=== PATIENT | male | born 1990 | race Hispanic/Latino ===

== ENCOUNTER 2016-11-04 02:53 | Inpatient (IN) ==
--- NOTE | 2016-11-04 02:56 | PROVIDER DOCUMENTATION ---
HPI-Abdominal Pain/GI Problem - General Stated Complaint: ABD PAIN Time Seen by Provider: 11/04/16 02:55 Unable to obtain history due to:: urgency Allergies/Adverse Reactions: Patient Allergies Allergy/AdvReac Type Severity Reaction Status Date / Time No Known Allergies Allergy Verified 11/04/16 03:06 Home Medications: Home Medication List Medication Instructions Recorded Confirmed Last Taken Type NK [No Home Medications] 11/04/16 11/04/16 Unknown History - History of Present Illness-ABD Abdominal Pain Onset Location: reports: generalized abdomen Quality of Pain: reports: aching Onset/Duration: reports: 1/2 hour ago Activities at Onset: reports: light activity, recent emotional stress Exposure to sick contacts?: Yes Modifying Factors: improves with: coughing Associated Symptoms: reports: arm pain Last BM: this afternoon Rectal Bleeding: reports: bright red blood on paper Emesis Description: reports: none Bruising or Bleeding Gums?: Yes Similar Symptoms Previously?: Yes Recently seen or treated by another doctor?: Yes Review of Systems - Adult - REVIEW OF SYSTEMS - ADULT ROS:: unobtainable per condition Constitutional: reports: no symptoms reported Eyes: reports: no symptoms reported Ears, Nose, Mouth & Throat: reports: no symptoms reported Cardiovascular: reports: no symptoms reported Respiratory: reports: no symptoms reported Gastrointestinal: reports: no symptoms reported Genitourinary: reports: no symptoms reported Musculoskeletal: reports: no symptoms reported Integumentary: reports: no symptoms reported Neurological: reports: no symptoms reported Psychiatric: reports: no symptoms reported Endocrine: reports: no symptoms reported Hematologic/Lymphatic: reports: no symptoms reported Allergic/Immunologic: reports: no symptoms reported All Other Systems: Reviewed and Negative Past History - Adult - PAST MEDICAL HISTORY-ADULT Review of Records: reports: Old Records Reviewed, Nursing Assessment Review, Medications Reviewed, Social history reviewed & non-contributory. Major Childhood Illnesses: reports: denies history Cardiovascular: reports: denies history Respiratory: reports: denies history Gastrointestinal: reports: denies history, pancreatitis Obstetrical/Gynecological: reports: denies history Genitourinary: reports: denies history Musculoskeletal: reports: denies history Neurological: reports: denies history Endocrine/Immune: reports: denies history Other Conditions: reports: denies history - PRIOR SURGERIES/PROCEDURES Surgical/Procedure History: reports: reviewed, not pertinent - PRIOR HOSPITALIZATIONS Prior Hospitalizations: reports: for other non-related - IMMUNIZATION STATUS Childhood Immunizations: See Nurse Assessment Flu Vaccine: See Nurse Assessment - FAMILY HISTORY Family History: reviewed, not pertinent Physical Exam-General - PHYSICAL EXAM-ADULT Initial Vital Signs Reviewed: Yes - CONSTITUTIONAL General Appearance: appears well, alert, no apparent distress Progress - PLAN OF CARE/RESULTS Result Diagrams: 11/04/16 03:08 11/04/16 03:08 Departure - Departure Time of Disposition Decision: 05:00 DIAGNOSIS: Pancreatitis, acute Disposition: ADMITTED INPATIENT 09 Certified Medical Emergency: Emergent Condition: Stable - Critical Care Note This patient required my direct & personal management of CC.: No
[2016-11-04] MEDS ORDERED: ZOFRAN IV ONE (03:18)
[2016-11-04 03:19] LABS: MANUAL DIFF NEEDED? NO
[2016-11-04 03:29] LABS: BASO% 0.9 % (0.0-0.8); EOS# 0.02 X1000 (0.0-0.7); EOS% 0.2 % (0.0-10.0); HEMOGLOBIN 14.8 g/dL (14.0-18.0); IMM GRAN# 0.16 X1000 (0.0-0.04); IMM GRAN% 1.6 % (0.0-0.5); LYMPH# 2.81 X1000 (1.2-3.4); LYMPH% 28.1 % (20.5-51.1); MCH 29.4 PG (27-31); MCHC 34.4 g/dL (33-37); MCV 85.3 FL (81-99); MONO# 1.21 X1000 (0.11-0.59); MONO% 12.1 % (1.7-9.3); MPV 10.9 FL (7.4-10.4); NEUT% 57.1 % (42.2-75.2); PLT 362 X1000 (130-400); RBC 5.04 XMIL (4.7-6.1)
[2016-11-04 03:52] LABS: AGAP 17; ALBUMIN 4.4 g/dL (3.5-5.0); ALKALINE PHOSPHATASE 105 U/L (32-122); AMYLASE 1221 U/L (20-200); BUN 12 mg/dL (8-22); CALCIUM 8.6 mg/dL (8.8-10.2); CHLORIDE 99 mmol/L (98-107); COSMO 275; FREE T4 1.27 ng/dL (0.93-1.70); GOT 25 U/L (10-34); GPT 38 U/L (10-44); LIPASE > 3000 U/L (13-60); POTASSIUM 3.8 mmol/L (3.5-5.1); SODIUM 137 mmol/L (136-145); TCO2 21 mmol/L (25-35); TOTAL PROTEIN 7.8 g/dL (6.3-8.3)
[2016-11-04] MEDS ORDERED: SODIUM CHLORIDE 0.9% INJ ONE ×2 (03:56→03:57)
[2016-11-04] MEDS ORDERED: PHENERGAN IV ONE ×2 (03:56→03:57)
[2016-11-04 04:09] LABS: UR AMPHETAMINES QUAL NONE DETECTED (NONE DETECT); UR BARBITUATES QUAL NONE DETECTED (NONE DETECT); UR BENZODIAZEPIN QUAL NONE DETECTED (NONE DETECT); UR CANNABINOIDS QUAL NONE DETECTED (NONE DETECT); UR COCAINE QUAL PRESUMPTIVE POSITIVE (NONE DETECT); UR MDMA QUAL NONE DETECTED (NONE DETECT); UR METHADONE QUAL NONE DETECTED (NONE DETECT); UR METHAMPHETAMINE QUAL NONE DETECTED (NONE DETECT); UR OPIATES QUAL NONE DETECTED (NONE DETECT); UR OXYCODONE QUAL NONE DETECTED (NONE DETECT); UR PCP QUAL NONE DETECTED (NONE DETECT); UR TCA QUAL NONE DETECTED (NONE DETECT)
[2016-11-04 04:10] LABS: BILIRUBIN URINE NEGATIVE (NEGATIVE); BLOOD URINE NEGATIVE (NEGATIVE); CLARITY CLEAR (CLEAR); COLOR STRAW; GLUCOSE URINE NEGATIVE (NEGATIVE); LEUKOCYTES URINE NEGATIVE (NEGATIVE); NITRITE URINE NEGATIVE (NEGATIVE); PH URINE 6.5; PROTEIN URINE NEGATIVE (NEGATIVE); SP GRAVITY URINE 1.005; UROBILINOGEN URINE NORMAL
[2016-11-04] MEDS ORDERED: DEMEROL IV ONE ×3 (04:16→06:30)
[2016-11-04 04:17] LABS: URINE EPITHELIAL CELLS <10 /HPF (<10); URINE WBC NS /HPF (<10)
[2016-11-04 04:18] LABS: URINE CULTURE PL NEEDED? YES; URINE SOURCE CLEAN CATCH
[2016-11-04] MEDS ORDERED: DEMEROL ONE (04:18)
[2016-11-04] MEDS ORDERED: NS 1,000 ML IV ONE ×2 (06:23→09:13)
[2016-11-04] MEDS ORDERED: COMPAZINE IV PRN (06:27)
--- NOTE | 2016-11-04 07:53 | Diag Imaging Result Doc PS360 ---
CT ABD/PELVIS W/ IV CONT ONLY - 11/04/2016 INDICATION: pain TECHNIQUE: A CT dose reduction protocol was used. COMPARISON: 07/03/2015 FINDINGS: There is a new nodular infiltrate in the posterior right lower lobe. There is significant adenopathy in the subcarinal region. There is mild inflammatory edema about the pancreatic tail suggesting recurrent pancreatitis. No abnormal fluid collections. Stable moderate dilation of the downstream main pancreatic duct. Stable cyst at the lower pole the left kidney. Stable mild fatty change of the liver. No bowel obstruction or inflammation. Urinary bladder, prostate, and rectum are normal. Bony structures are intact. IMPRESSION: 1. New nodular infiltrate in the posterior right lower lobe. Significant mediastinal adenopathy. Given the patient's young age, this is unlikely to represent malignancy. This may represent a granulomatous inflammation, possibly tuberculosis. Correlate clinically. A follow-up chest CT may be beneficial. 2. Recurrent pancreatitis of the pancreatic tail. Stable dilation of the downstream main pancreatic duct. Electronically signed by Eduardo Benitez 11/04/2016 7:50 AM
[2016-11-04] MEDS ORDERED: LIBRIUM PO SCH (09:15)
[2016-11-04] MEDS ORDERED: PHENERGAN IV PRN (09:50)
[2016-11-04] MEDS ORDERED: SODIUM CHLORIDE 0.9% INJ PRN (09:50)
[2016-11-04] MEDS: DILAUDID IV PRN ×4 (10:10→21:26)
[2016-11-04] MEDS: SODIUM CHLORIDE 0.9% INJ SCH (10:13)
[2016-11-04] MEDS: PROTONIX IV SCH ×2 (10:13→21:20)
[2016-11-04] MEDS: LIBRIUM PO SCH ×2 (10:13→18:05)
[2016-11-04] MEDS ORDERED: TUBERSOL ID ONE (10:25)
[2016-11-04] MEDS: M.V.I.-12 10 ML, FOLIC ACID 1 MG, MAGNESIUM SULFATE 1 GM, THIAMINE 100 MG in NS 1,000 ML IV SCH (10:57)
--- NOTE | 2016-11-04 11:10 | HISTORY AND PHYSICAL ---
CHIEF COMPLAINT: Abdominal pain. HISTORY OF PRESENT ILLNESS: Mr. Valdes is a 26-year-old male with a history of chronic alcohol abuse and recurrent pancreatitis. He presented to the emergency room complaining of abdominal pain, stating that he knows he has pancreatitis. He was found to have an amylase of 1,221 and a lipase greater than 3,000; it looks like the highest he has ever had. He was also found have a blood alcohol of 132 and cocaine positive urine drug screen. At the time of exam the patient is rolling in the bed, hurting, and does not want to answer questions. In review of his chart, he does have a history of pancreatitis, being hospitalized at this facility 4 times in the last year for this. In the emergency room he was given IV hydration as well as pain and nausea control and admitted for further evaluation and treatment. In July of 2015 he underwent an MRCP which showed a distended pancreatic duct but no distinct mass. His CT today shows a new nodular infiltrate in the posterior right lobe with significant mediastinal adenopathy. That was not present on his CT in June of 2015. PAST MEDICAL HISTORY: Recurrent pancreatitis, alcohol abuse, tobacco abuse, cocaine abuse. PAST SURGICAL HISTORY: Appendectomy. SOCIAL HISTORY: Positive for alcohol abuse, illicit drug, use and tobacco use. ALLERGIES: No known drug allergies. HOME MEDICATIONS: None. REVIEW OF SYSTEMS: Unable to obtain due to patient's status. PHYSICAL EXAMINATION: GENERAL: This is a 26-year-old male who is lying in the bed, moaning and thrashing around complaining of pain. VITAL SIGNS: Blood pressure is 113/58 with a heart rate of 74, respirations are 18, temperature is 97.5 degrees with room air saturations 97 to 98%. CARDIOVASCULAR: Regular rate and rhythm. S1, S2 appreciated. PULMONARY: Breath sounds are clear. No increased work of breathing noted. GASTROINTESTINAL: Abdomen is soft. Tender epigastric and right upper quadrant pain, with bowel sounds noted. MUSCULOSKELETAL: Good range of motion of joints. EXTREMITIES: No clubbing, cyanosis, or edema. Calves are nontender. Pulses palpable x4. NEUROLOGIC: He is alert and oriented x3. Cranial nerves 2 through 12 grossly intact. DIAGNOSTICS: WBC is 9.99, with hemoglobin 14.8, hematocrit 43, and platelets of 362,000. Sodium is 137, potassium 3.8, BUN 12, creatinine 0.9, with a glucose of 126. Amylase is 1,221, lipase greater than 3,000. Urinalysis is essentially negative. Urine drug screen is positive for cocaine with a blood alcohol of 132. CT of the abdomen and pelvis reveals a new nodular infiltrate in the right lower lobe with significant mediastinal adenopathy. Given the patient's young age, it is unlikely to represent malignancy. This may represent a granulomatous inflammation, possibly TB. Follow up chest CT is beneficial. Recurrent pancreatitis of the pancreatic tail with stable dilatation of the downstream main pancreatic duct. ASSESSMENT AND PLAN: 1. Abdominal pain secondary to pancreatitis. 2. Acute pancreatitis. 3. Lung mass with extensive adenopathy r/o TB & primary fungal lung inf. Discussed with Dr Huang, plans to transfer to [facility] Monday for possible bronchoscopy ans/or further evaluation. 4. Alcohol abuse. 5. Cocaine abuse. 6. Tobacco abuse. He has been admitted to med/surg floor. He is receiving IV hydration which will continue. We will start Dilaudid for pain with , Compazine 4 times a day and Zofran as needed. He will remain NPO at present. We will start a low-dose Librium taper as he does drink daily. We will give a banana bag daily alternating with saline. We will trend his labs and monitor for any signs of withdrawal or DTs. Dictated by SEGUNDO Nino for Mario Castro MD cc: SEGUNDO Nino MD pt examined, will treat pancreatitis and stabilize and will need further diagnostic testing for lung mass, when more stable, based on CT findings lesion shoudl be amenable to bronchoscopy, will rule out tuberculosis, only s/s he reports is night sweats APENOT MTDD
[2016-11-04] MEDS ORDERED: NS 1,000 ML ONE (21:24)
[2016-11-05] MEDS: LIBRIUM PO SCH ×4 (00:56→18:48)
[2016-11-05] MEDS: DILAUDID IV PRN ×8 (01:11→23:22)
[2016-11-05 05:57] LABS: HEMATOCRIT 44.5 % (42.0-52.0); HEMOGLOBIN 14.6 g/dL (14.0-18.0); MCH 28.3 PG (27-31); MCHC 32.8 g/dL (33-37); MCV 86.2 FL (81-99); MPV 11.2 FL (7.4-10.4); RBC 5.16 XMIL (4.7-6.1)
[2016-11-05 06:15] LABS: AGAP 12; ALBUMIN 3.7 g/dL (3.5-5.0); ALKALINE PHOSPHATASE 94 U/L (32-122); AMYLASE 281 U/L (20-200); BUN 9 mg/dL (8-22); CALCIUM 8.3 mg/dL (8.8-10.2); CHLORIDE 98 mmol/L (98-107); COSMO 264; GOT 14 U/L (10-34); GPT 25 U/L (10-44); LIPASE 288 U/L (13-60); POTASSIUM 3.4 mmol/L (3.5-5.1); SODIUM 132 mmol/L (136-145); TCO2 23 mmol/L (25-35); TOTAL PROTEIN 7.2 g/dL (6.3-8.3)
[2016-11-05] MEDS: ZOFRAN IV PRN ×2 (08:09→20:52)
--- NOTE | 2016-11-05 10:22 | Diag Imaging Result Doc PS360 ---
EXAM: CT THORAX W/CONTRAST INDICATION: pneumonia COMPARISON: CT abdomen and pelvis dated 11/04/2016. No prior dedicated CT chest is available for comparison. FINDINGS: Since the recent previous study, the density at the right lung base has worsened significantly and there has been development of consolidation in the left lung base as well. At least a large component of this is atelectasis. The nodular density at the medial right lung base seen on the previous study has become confluent with a new infiltrate and atelectasis. There is atelectasis and/or infiltrate in the right middle lobe abutting the fissure superiorly that is essentially stable. There is new atelectasis and/or infiltrate in the lingula. There is trace pleural fluid at the left lung base. As was seen on the previous study, there is severe lymphadenopathy in the subcarinal region of the mediastinum as well as the right perihilar region. For reference, the large subcarinal [employer] measures up to 5.4 x 2.9 cm axially. Limited views of the upper abdomen reveal inflammatory changes and nonloculated fluid in the left upper quadrant. This has worsened during the interval. It is assumed to be emanating from the tail the pancreas, which is out of the [id number]. There is known acute pancreatitis. IMPRESSION: 1.Significant worsening of atelectasis and infiltrate involving the right lower lung zone as compared to the previous study. 2.Development of atelectasis and/or infiltrate at the left lower lung zone during the interval. 3.Severe mediastinal and right hilar lymphadenopathy that is stable as compared to the very recent previous study. 4.Worsening inflammatory changes in the left upper quadrant related to known acute pancreatitis. Electronically signed by Cornelius Elliott 11/05/2016 10:19 AM
[2016-11-05] MEDS ORDERED: LR 1,000 ML IV ONE (10:23)
[2016-11-05] MEDS: PROTONIX IV SCH ×2 (11:06→20:53)
[2016-11-05] MEDS: M.V.I.-12 10 ML, FOLIC ACID 1 MG, MAGNESIUM SULFATE 1 GM, THIAMINE 100 MG in NS 1,000 ML IV SCH (11:06)
[2016-11-05 11:13] LABS: HIV ANTIBODY SCREEN SEE COMMENTS
[2016-11-05] MEDS ORDERED: DUONEB (A & A) INH PRN (11:26)
--- NOTE | 2016-11-05 11:55 | Diag Imaging Result Doc PS360 ---
EXAM: US GB < RUQ (LIMITED) INDICATION: pancreatitis COMPARISON: 07/19/2016 FINDINGS: The gallbladder is grossly unremarkable with no stones, wall thickening, or pericholecystic fluid. The common bile duct is normal in diameter. Sonographic Reynolds's sign was reported to be negative. The pancreas is largely obscured by bowel gas. The liver echotexture is diffusely increased similar to the previous study indicating hepatic steatosis. The aorta, IVC, and right kidney are unremarkable. IMPRESSION: 1.Suggestion of hepatic steatosis. 2.Poor visualization of the pancreas. Essentially unremarkable, otherwise. Electronically signed by Cornelius Elliott 11/05/2016 11:53 AM
[2016-11-05] MEDS: ZOSYN 3.375 GM/NS 3.375 GM/50 ML IVPB IV SCH ×5 (12:16→23:28)
[2016-11-05] MEDS: LR 1,000 ML IV SCH ×3 (12:19→20:52)
--- NOTE | 2016-11-05 12:32 | PROGRESS NOTE ---
DATE: 11/05/2016 OBJECTIVE: Vital Signs: Blood pressure 165/86, heart rate 979, respiratory rate 20, temperature 99.7 degrees, 92% on room air. Cardiovascular: Regular rate and rhythm. Pulmonary: Bilateral breath sounds. Diminished at the bases. Gastrointestinal: Abdomen soft, nontender, nondistended. Bowel sounds are positive. Extremities: No clubbing or cyanosis. Lymphatics: No peripheral edema. LABORATORY STUDIES: White count 17, hemoglobin and hematocrit 14 and 44. Platelet of 276,000. Potassium of 3.4, amylase and lipase are down to 281 and 288. PROBLEM LIST: 1. Acute pancreatitis clinically has improved somewhat although it is hard to tell from him. He is very kind of sedated and he is not sharing much information. He does say his pain is better. 2. Developing pneumonia. I am going to start Zosyn, Lovenox. I think some of this is probably severe atelectasis because he does not want to get out of bed. I am sure he does not feel well, of course, but I think he has also not motivated to get up out of bed. So, we will institute breathing treatments and pulmonary toilet. 3. Subcarinal mass with a left lower lobe. He will need bronchoscopy for biopsy. I think bronchoscopy would be easier. I have discussed the case with Dr. Huang. We will plan to transfer him either tomorrow or Monday morning to [facility] for evaluation by Pulmonary there for bronchoscopy. I think that will have to be assayed. The TB rule out process this is in progress now. AFB and QuantiFERON ARE pending, as well as evaluation for fungal pneumonia. DISPOSITION: Pending his multiple issues. cc: Mario Castro MD
[2016-11-05] MEDS: DUONEB (A & A) INH SCH ×2 (16:09→21:53)
[2016-11-05] MEDS: TYLENOL PO PRN (23:20)
[2016-11-06] MEDS: LIBRIUM PO SCH ×3 (02:27→19:45)
[2016-11-06] MEDS: DILAUDID IV PRN ×7 (02:27→21:08)
[2016-11-06] MEDS: LR 1,000 ML IV SCH ×5 (03:08→19:49)
[2016-11-06] MEDS: DUONEB (A & A) INH SCH ×4 (04:12→21:32)
[2016-11-06] MEDS: ZOSYN 3.375 GM/NS 3.375 GM/50 ML IVPB IV SCH ×4 (05:07→23:22)
[2016-11-06 05:53] LABS: HEMATOCRIT 43.2 % (42.0-52.0); HEMOGLOBIN 14.1 g/dL (14.0-18.0); MCH 28.5 PG (27-31); MCHC 32.6 g/dL (33-37); MCV 87.3 FL (81-99); MPV 11.1 FL (7.4-10.4); RBC 4.95 XMIL (4.7-6.1)
[2016-11-06 06:16] LABS: AGAP 10; ALBUMIN 3.4 g/dL (3.5-5.0); ALKALINE PHOSPHATASE 90 U/L (32-122); BUN 7 mg/dL (8-22); CALCIUM 8.5 mg/dL (8.8-10.2); CHLORIDE 95 mmol/L (98-107); COSMO 259; GOT 15 U/L (10-34); GPT 21 U/L (10-44); POTASSIUM 3.2 mmol/L (3.5-5.1); SODIUM 130 mmol/L (136-145); TCO2 25 mmol/L (25-35)
[2016-11-06] MEDS ORDERED: MAGNESIUM SULFATE 2 GM/S.W.I. 2 GM/50 ML IVPB IV ONE (10:14)
[2016-11-06] MEDS ORDERED: VANCOMYCIN IV PER PHARMACY MISC SCH (10:15)
[2016-11-06] MEDS: PROTONIX IV SCH ×2 (10:36→21:07)
[2016-11-06] MEDS: POTASSIUM CHLORIDE 20 MEQ/SWI 20 MEQ/100 ML IVPB IV SCH ×2 (10:36→13:22)
[2016-11-06] MEDS: M.V.I.-12 10 ML, FOLIC ACID 1 MG, MAGNESIUM SULFATE 1 GM, THIAMINE 100 MG in NS 1,000 ML IV SCH (10:37)
--- NOTE | 2016-11-06 10:52 | PROGRESS NOTE ---
DATE: 11/06/2016 SUBJECTIVE: Today, Mr. Valdes refers to be doing a little better. He continues to have significant abdominal discomfort, especially after eating. No vomiting. OBJECTIVE: General: Mr. Valdes is a 26-year-old, male. He is in bed, not seemingly distressed. HEENT: Mucosa is pink and moist. Anicteric and acyanotic. Neck: Supple. Chest: Good air entry bilaterally. There are bilateral posterior coarse crepitations. Cardiovascular: Regular rate and rhythm. Abdomen: Soft, mildly tender all over but no peritoneal reaction. Bowel sounds are present. 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 There is no focal neurological deficit. Vital Signs: Blood pressure is 135/70, pulse of 102, respirations are 18, temperature is 100.3 degrees. Laboratory Data: WBC is 11.71, hemoglobin is 14.1, platelet count of 255,000. Chemistry is reviewed. Sodium is 130, potassium is 3.2, chloride is 95, bicarb is 27, BUN is 7, creatinine 0.7. LFTs are completely normal. A CT scan of the chest which was done yesterday shows worsening of atelectasis and infiltrates involving the right lower lobe and development of atelectasis and/or infiltrate of the left lower lobe during the interval. There is a severe mediastinal and right hilar lymphadenopathy. ASSESSMENT: 1. Acute on chronic recurrent alcohol-induced pancreatitis. 2. Acute hypoxemia secondary to bilateral pneumonia and atelectasis versus systemic reaction of acute pancreatitis. 3. Severe mediastinal lymphadenopathy. 4. Hyponatremia with hypokalemia. 5. Sepsis, likely due to pneumonia. PLAN: In general, I think Mr. Valdes is doing a little better. He continues to have significant pain with eating. We will continue to keep him nothing per oral, only ice chips as tolerated. We will continue with the current antibiotics. I will add vancomycin to cover for possible methicillin-resistant Staphylococcus aureus since patient has been in and out of hospital. There is a plan to transfer the patient to [facility] as per Dr. Castro's note on 11/05/2016 for a bronchoscopy with Dr. Huang. I think this will eventually happen on Monday, which is tomorrow, so we will recall pulmonary medicine tomorrow to make that transfer. For now, there has been a lot of serology that was ordered for fungal and TB still pending on the results. cc: Pineda Hickman MD
[2016-11-06] MEDS ORDERED: VANCOMYCIN 2,000 MG in NS 500 ML IV ONE (12:00)
[2016-11-06] MEDS ORDERED: DILAUDID IV PRN (13:39)
[2016-11-06] MEDS: PHENERGAN IV PRN ×2 (17:16→21:07)
[2016-11-07] MEDS: VANCOMYCIN 1,500 MG in NS 250 ML IV SCH ×2 (00:09→12:27)
[2016-11-07] MEDS: LIBRIUM PO SCH ×4 (01:01→22:18)
[2016-11-07] MEDS: DILAUDID IV PRN ×6 (02:21→22:19)
[2016-11-07] MEDS: LR 1,000 ML IV SCH ×2 (02:26→22:18)
[2016-11-07] MEDS: DUONEB (A & A) INH SCH ×4 (03:10→22:28)
[2016-11-07 07:22] LABS: MANUAL DIFF NEEDED? NO
[2016-11-07 07:40] LABS: BASO% 0.3 % (0.0-0.8); EOS# 0.05 X1000 (0.0-0.7); EOS% 0.4 % (0.0-10.0); HEMATOCRIT 40.3 % (42.0-52.0); HEMOGLOBIN 13.1 g/dL (14.0-18.0); IMM GRAN# 0.06 X1000 (0.0-0.04); IMM GRAN% 0.5 % (0.0-0.5); LYMPH# 1.23 X1000 (1.2-3.4); MCH 28.8 PG (27-31); MCHC 32.5 g/dL (33-37); MCV 88.6 FL (81-99); MONO# 1.22 X1000 (0.11-0.59); MONO% 10.9 % (1.7-9.3); MPV 11.6 FL (7.4-10.4); NEUT% 76.9 % (42.2-75.2); PLT 258 X1000 (130-400); RBC 4.55 XMIL (4.7-6.1)
[2016-11-07 07:52] LABS: AGAP 13; BUN 6 mg/dL (8-22); CALCIUM 8.2 mg/dL (8.8-10.2); CHLORIDE 100 mmol/L (98-107); COSMO 270; POTASSIUM 3.7 mmol/L (3.5-5.1); SODIUM 136 mmol/L (136-145); TCO2 23 mmol/L (25-35)
[2016-11-07] MEDS: M.V.I.-12 10 ML, FOLIC ACID 1 MG, MAGNESIUM SULFATE 1 GM, THIAMINE 100 MG in NS 1,000 ML IV SCH (08:45)
[2016-11-07] MEDS: SODIUM CHLORIDE 0.9% INJ SCH (08:46)
[2016-11-07] MEDS: PROTONIX IV SCH ×2 (08:46→22:18)
--- NOTE | 2016-11-07 08:55 | PROGRESS NOTE ---
DATE: 11/07/2016 SUBJECTIVE: The patient notes that he is feeling a little bit better. He started to eat a little bit better. He is having no nausea or vomiting. He is tolerating a liquid diet without any issues currently. PHYSICAL EXAMINATION: Vital Signs: Temperature 98 degrees, pulse 117, respiratory rate 22, BP 150/72, saturation 93% on 5 L. General: Patient is awake, alert. He is currently in no respiratory distress. He is lying in the bed. Notes that he feels better. HEENT: Normocephalic, atraumatic. Neck: Supple. CV: Regular rate. Chest: Clear. Abdomen: Soft, much less tender. Extremities: Moves all extremities. Neurologic: No focal changes. DIAGNOSTIC DATA: CBC and CMP essentially baseline. ASSESSMENT: 1. Acute on chronic recurrent alcoholic induced pancreatitis, improving. We will advance diet. 2. Acute hypoxemia with bilateral pneumonia. 3. Severe mediastinal lymphadenopathy. 4. Hyponatremia, resolved. 5. Hypokalemia, resolved. 6. Sepsis, appears improving. PLAN: Patient is planned for a bronchoscopy. We will see if Dr. Otero is available. Otherwise, will have to be done on Monday. We will advance diet as tolerated. cc: Rogelio France MD
[2016-11-07] MEDS: ZOSYN 3.375 GM/NS 3.375 GM/50 ML IVPB IV SCH ×4 (09:49→22:42)
[2016-11-07 10:44] LABS: HEPATITIS PROFILE ACUTE SEE COMMENTS
[2016-11-07 10:51] LABS: BLASTOMYCES AB BY EIA SEE COMMENTS
[2016-11-07] MEDS: TYLENOL PO PRN (22:54)
[2016-11-08] MEDS: VANCOMYCIN 1,500 MG in NS 250 ML IV SCH (00:41)
[2016-11-08] MEDS: DILAUDID IV PRN ×6 (02:25→23:01)
[2016-11-08] MEDS: LIBRIUM PO SCH ×4 (03:20→21:33)
[2016-11-08] MEDS: LR 1,000 ML IV SCH ×5 (03:21→23:54)
[2016-11-08] MEDS: DUONEB (A & A) INH SCH ×3 (03:34→22:05)
[2016-11-08] MEDS: ZOSYN 3.375 GM/NS 3.375 GM/50 ML IVPB IV SCH ×4 (06:32→23:53)
[2016-11-08 08:29] LABS: HEMOGLOBIN 13.5 g/dL (14.0-18.0); MCH 29.3 PG (27-31); MCHC 33.8 g/dL (33-37); MPV 10.7 FL (7.4-10.4); RBC 4.6 XMIL (4.7-6.1)
--- NOTE | 2016-11-08 08:34 | PROGRESS NOTE ---
DATE: 11/08/2016 SUBJECTIVE: Patient notes that he still feels bad. Did not sleep well last night. Did have a fever yesterday. Positive cough and congestion. OBJECTIVE: Vital signs: Temperature 98, T-max 101.3 degrees at 10 p.m. on 11/07, pulse 88-116, respiratory 20, BP 135/82, sat 96% on 2 L. Did have a low at 91% on 5 L after giving IV pain medicine yesterday. General: Patient is lying in bed. He has the sheets over his head. He is lying flat. He is in mild respiratory distress. HEENT: Normocephalic. Neck: Supple. CV: Regular rate. Chest: Decreased breath sounds but appears clear bilaterally. Abdomen: Soft. Tender in the epigastric region. Extremities: Moves all extremities. Neurologic: No changes. Skin: Warm and dry. No rashes. LABS: Pending this a.m.. ASSESSMENT: 1. Alcohol-induced pancreatitis, acute on chronic, continues to improve. We will advance diet. 2. Acute hypoxemia secondary to bilateral pneumonia. Certainly could be atelectasis secondary to a reaction from pancreatitis. 3. Severe mediastinal lymphadenopathy. 4. Fever. 5. Leukocytosis. Continues to improve. 6. Hyponatremia, resolved. 7. Hypokalemia, appears resolved. 8. Pain control. 9. Sepsis secondary to pneumonia. PLAN: From a pancreatitis standpoint patient seems to be improving, although he does have this lymphadenopathy and continued fever. Need to attempt to transfer to [facility] for pulmonology input and possibly bronchoscopy. We attempted multiple times yesterday and was unable to contact Dr. Otero. We will continue today. cc: Rogelio France MD
[2016-11-08 09:01] LABS: INR 1.13 (0.86-1.15); PROTIME 14.8 Seconds (12.1-15.5)
[2016-11-08] MEDS: PROTONIX IV SCH ×2 (09:13→21:17)
[2016-11-08] MEDS: SODIUM CHLORIDE 0.9% INJ SCH ×2 (09:13→21:16)
[2016-11-08 09:14] LABS: AGAP 11; ALBUMIN 3.2 g/dL (3.5-5.0); ALKALINE PHOSPHATASE 82 U/L (32-122); BUN 7 mg/dL (8-22); CALCIUM 8.5 mg/dL (8.8-10.2); CHLORIDE 103 mmol/L (98-107); COSMO 275; GOT 20 U/L (10-34); GPT 25 U/L (10-44); MAGNESIUM 2.1 mg/dL (1.5-2.7); POTASSIUM 3.7 mmol/L (3.5-5.1); SODIUM 139 mmol/L (136-145); TCO2 26 mmol/L (25-35); TOTAL PROTEIN 6.6 g/dL (6.3-8.3)
[2016-11-08] MEDS: TYLENOL PO PRN (09:21)
[2016-11-08] MEDS: M.V.I.-12 10 ML, FOLIC ACID 1 MG, MAGNESIUM SULFATE 1 GM, THIAMINE 100 MG in NS 1,000 ML IV SCH (10:42)
[2016-11-08] MEDS ORDERED: DUONEB (A & A) INH PRN (11:45)
[2016-11-08] MEDS ORDERED: PHENERGAN IV PRN (11:51)
[2016-11-08] MEDS ORDERED: SODIUM CHLORIDE 0.9% INJ PRN (11:52)
[2016-11-08] MEDS ORDERED: ZOFRAN IV PRN (11:56)
[2016-11-08] MEDS ORDERED: VANCOMYCIN IV PER PHARMACY MISC SCH (12:45)
[2016-11-08] MEDS: VANCOMYCIN 1,700 MG in NS 250 ML IV SCH (13:43)
[2016-11-09] MEDS: TYLENOL PO PRN ×2 (00:11→20:10)
[2016-11-09] MEDS: VANCOMYCIN 1,700 MG in NS 250 ML IV SCH ×2 (00:12→14:16)
[2016-11-09] MEDS: LR 1,000 ML IV SCH ×4 (00:37→17:55)
[2016-11-09] MEDS: DILAUDID IV PRN ×6 (02:10→15:49)
[2016-11-09] MEDS: LIBRIUM PO SCH ×4 (02:12→20:35)
[2016-11-09] MEDS: DUONEB (A & A) INH SCH ×4 (02:40→21:40)
[2016-11-09] MEDS: ZOSYN 3.375 GM/NS 3.375 GM/50 ML IVPB IV SCH ×4 (05:14→23:00)
[2016-11-09 06:35] LABS: MANUAL DIFF NEEDED? NO
[2016-11-09 06:42] LABS: BASO% 0.3 % (0.0-0.8); EOS# 0.18 X1000 (0.0-0.7); HEMATOCRIT 39.3 % (42.0-52.0); HEMOGLOBIN 13.2 g/dL (14.0-18.0); IMM GRAN# 0.05 X1000 (0.0-0.04); IMM GRAN% 0.6 % (0.0-0.5); LYMPH# 1.47 X1000 (1.2-3.4); LYMPH% 16.3 % (20.5-51.1); MCH 29.5 PG (27-31); MCHC 33.6 g/dL (33-37); MCV 87.7 FL (81-99); MONO# 1.28 X1000 (0.11-0.59); MONO% 14.2 % (1.7-9.3); MPV 10.9 FL (7.4-10.4); NEUT% 66.6 % (42.2-75.2); PLT 296 X1000 (130-400); RBC 4.48 XMIL (4.7-6.1)
[2016-11-09 06:54] LABS: AGAP 14; ALBUMIN 2.9 g/dL (3.5-5.0); ALKALINE PHOSPHATASE 78 U/L (32-122); BUN 10 mg/dL (8-22); CHLORIDE 106 mmol/L (98-107); COSMO 286; GOT 24 U/L (10-34); GPT 29 U/L (10-44); MAGNESIUM 2.2 mg/dL (1.5-2.7); POTASSIUM 3.9 mmol/L (3.5-5.1); SODIUM 144 mmol/L (136-145); TCO2 24 mmol/L (25-35); TOTAL BILIRUBIN 0.43 mg/dL (0.20-1.00); TOTAL PROTEIN 6.5 g/dL (6.3-8.3)
--- NOTE | 2016-11-09 07:31 | Diag Imaging Result Doc PS360 ---
CHEST-PORTABLE - 11/09/2016 INDICATION: dyspnea TECHNIQUE: COMPARISON: Chest CT 11/05/2016 FINDINGS: Lung volumes are critically low. Accounting for this, there are grossly stable infiltrates in the lung bases. Curvilinear density above the right hemidiaphragm appears to be some atelectasis in the right middle lobe which was present on the prior CT. IMPRESSION: Critically low lung volumes. Stable infiltrates and atelectasis in the lung bases. Electronically signed by Eduardo Benitez 11/09/2016 7:29 AM
[2016-11-09] MEDS: M.V.I.-12 10 ML, FOLIC ACID 1 MG, MAGNESIUM SULFATE 1 GM, THIAMINE 100 MG in NS 1,000 ML IV SCH ×2 (07:51→08:39)
[2016-11-09] MEDS: PROTONIX IV SCH ×3 (07:52→20:13)
--- NOTE | 2016-11-09 08:30 | CONSULTATION ---
DATE OF CONSULTATION: 11/09/2016 REFERRING PHYSICIAN: Dr. France. CHIEF COMPLAINT: Abdominal pain. HISTORY OF PRESENT ILLNESS: This is an 26-year-old male with past medical history of alcohol abuse and pancreatitis that was sent to [facility] for pulmonology input secondary to bilateral pneumonia. The patient was initially admitted for abdominal pain and acute on chronic alcoholic-induced pancreatitis. He has had fever, chills, cough, congestion and was found to have pneumonia. REVIEW OF SYSTEMS: A 10-point review of systems was conducted and pertinent as noted in the HPI, otherwise noncontributory. PAST MEDICAL HISTORY: Alcohol abuse and pancreatitis. ALLERGIES: No known drug allergies. FAMILY HISTORY: Noncontributory. ACTIVE MEDICATIONS: Tylenol, DuoNeb, Librium, Dilaudid, vancomycin, Zofran, Protonix, Zosyn, Phenergan. PHYSICAL EXAMINATION: Vital Signs: Temperature 98.2, heart rate 91, respiratory rate 18, blood pressure 137/82, oxygen saturation 97%. General: Awake, alert, no acute distress noted. HEENT: Normocephalic and atraumatic. PERRL. Cardiovascular: S1, S2 present. Chest: Reduced entry. Extremities: No edema noted. Abdomen: Soft. Bowel sounds present in all quadrants. Neurologic: No focal deficits. LABS AND INVESTIGATIONS: WBC 9.02, RBC 4.48, hemoglobin 13.2, hematocrit 39.3, platelet count 296. Sodium 144, potassium 3.9, chloride 106, carbon dioxide 24, anion gap 14. BUN 10, creatinine 1.1, glucose 96. Chest x-ray performed on 11/09/2016 shows low lung volumes with stable infiltrates and atelectasis in the lung bases. ASSESSMENT AND PLAN: This is a 26-year-old male admitted to the hospital with alcohol-induced pancreatitis that seems to be improving. He is also found to have bilateral pneumonia with lymphadenopathy and fever. We will continue inhaled bronchodilators and intravenous steroids, Protonix for gastrointestinal prophylaxis. Further recommendations pending diagnostic studies. Thank you for the courtesy of this consultation. Dictated by SEGUNDO Tucker for Tez Otero MD cc: SEGUNDO Tucker MD
--- NOTE | 2016-11-09 12:44 | PROGRESS NOTE ---
DATE: 11/09/2016 SUBJECTIVE: Today, Mr. Valdes refers to be doing okay. He continues to have some abdominal epigastric discomfort. Mr. Valdes was transferred from [facility] over here yesterday for pulmonary evaluation. From Dr. Otero's note I realize he has also consulted surgery for mediastinoscopy. OBJECTIVE: Vital signs: Blood pressure is 137/82, pulse of 91, respirations 18, temperature 98.2 degrees. Of note patient had a temperature of 99.8 early this morning and has been running a low grade temperature since admission. General: Mr. Valdes is a 26-year-old male. He is in bed, and does not seems to be in any distress. HEENT: Mucosa is pink and moist. Anicteric. Acyanotic. Neck: Supple. Chest: Air entry is bilaterally reduced. There are some bibasilar crepitations more so on the right than the left. Cardiovascular: Regular rate and rhythm. Abdomen: Soft. Mildly tender in the epigastrium. Bowel sounds are present. Extremities: No pedal edema. 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 There is no focal neurological deficit. LABORATORY DATA: WBC is down to 9.02, hemoglobin is 13.3, platelet count of 296,000. Chemistry is reviewed is completely normal. Vitamin D level is 18.1. IMAGING STUDIES: A chest x-ray which was done today. Shows critically low lung volumes. Stable infiltrates and atelectasis in lung bases. A CT of the chest which was done on the shows significant worsening atelectasis and infiltrates involving right lower lung as well. In the left lower lung, there is a severe mediastinal and right hilar lymphadenopathy. ASSESSMENT: 1. Sepsis on presentation due to underlying pneumonia. 2. Acute hypoxemic respiratory distress on presentation due to bilateral pneumonia. 3. Severe mediastinal lymphadenopathy suspicious for granulomatous disease. The patient's serology, so far the histoplasma antigen is negative. HIV is negative. The TB QuantiFERON test is also negative. However the Blastomyces antibody in serum is positive. Immunodiffusion has been ordered and was still pending. Not quite sure or if this will explain the lymphadenopathies. We will consult Infectious Disease as well to evaluate the patient and give us some recommendations. The patient is pending surgery evaluation today for possible mediastinoscopy with sampling of 1 of the lymph node so that we can get a tissue diagnosis. 4. Hyponatremia improved. 5. Acute on chronic recurrent alcohol-induced pancreatitis improved. We will we will repeat the lipase and the C-reactive protein to see where and how to check on the inflammatory markers and also the progress. cc: Pineda Hickman MD
[2016-11-09 14:54] LABS: COCCIDIOIDES AB SCREEN SERUM SEE COMMENTS
[2016-11-09 15:44] LABS: BLASTOMYCES AB ID CHARGE YES; BLASTOMYCES BY IMMUNODIFFUSION SEE COMMENTS
--- NOTE | 2016-11-09 16:39 | CONSULTATION ---
DATE OF CONSULTATION: 11/09/2016 CONCLUSION: The patient was at [facility] and transferred to here. He had a flare up of his pancreatitis which is secondary to alcohol consumption. In addition on chest x -ray, he has bibasilar infiltrates which I think could represent aspiration pneumonia. On CT scan of the abdomen and pelvis a right lower lobe nodule was seen by the radiologist and also evidence of pancreatitis was found. On CT scan of the chest bilateral infiltrates and mediastinal adenopathy were seen. I think the adenopathy is due to a bibasilar aspiration pneumonia and not TB. MEDICATIONS: The patient is receiving vancomycin and Zosyn with which I agree. PHYSICAL EXAMINATION: Vital Signs: Temperature is 98.9 degrees, pulse 96, respirations 14, blood pressure 144/87. Patient's weight is listed as 191 pounds and he is 5 feet 6 inches tall. General: This is an obese, young male. He is in no acute distress. Lungs: Clear to auscultation. Cardiovascular: Heart rate is regular. Abdomen: Soft and nontender. Neurologic: Patient is alert. He can move his extremities. There is no tremor. His sensation is intact to touch. His memory, as regarding his medical history seemed to be intact. Integument: No rash noted. DISCUSSION: I doubt he has TB. He is not having night sweats. He is not losing weight. He has showed me his arm where he said a skin test for TB was placed and there was no reaction there. DIAGNOSTIC DATA: The patient's CBC shows a white count of 9020, hemoglobin 13.2 , and platelet count 296,000. Creatinine is 1.1. GFR is greater than 60. Vancomycin level is 8.4. Blastomyces and Coccidioides antibody titers are negative. Urine culture is negative. CT scan of the abdomen and pelvis shows pancreatitis and a right lower lobe nodule. Urine culture is negative. Chest x- ray shows bibasilar infiltrates. PREVIOUS HOSPITALIZATIONS AND OPERATIONS: He has had an appendectomy, and admissions for pancreatitis. MEDICAL DISEASES: Positive for pancreatitis, alcoholism and cigarette smoking. INFECTIOUS DISEASE HISTORY: Negative for pneumonia and UTI. FAMILY HISTORY: Positive for diabetes mellitus, hypertension, myocardial infarction, stroke, and cancer. SOCIAL HISTORY: The patient was born in [place]. He lives in [place] for the past 5 years. He is living with a female. 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 ALLERGIES: The chart lists no known drug allergies. HOME MEDICATIONS: He takes no medications. He is 5 feet 6 inches tall, weighs 191 pounds. Thank you for the consult. cc: Shemar Pace MD [facility]
--- NOTE | 2016-11-09 16:47 | CONSULTATION ---
DATE OF CONSULTATION: 11/09/2016 HISTORY OF PRESENT ILLNESS: This is a 26-year-old [place] gentleman who moved to [place] recently. He has a history of alcoholic pancreatitis. He abuses alcohol. Presented with abdominal pain, chest pain, shortness of breath and a productive cough. CT scan showed pancreatitis and it also showed bilateral basilar pneumonias with some mediastinal lymphadenopathy. He had extensive medical workup and been treated with antibiotics. White count has down trended. He has become afebrile. The TB tests have been negative and other fungal tests have been negative Surgery was consulted to evaluate for mediastinal biopsy to facilitate diagnosis. Denies any history of night sweats or weight loss. PAST MEDICAL HISTORY: Otherwise for alcoholic pancreatitis. SURGICAL HISTORY: Negative. SOCIAL HISTORY: Smokes half pack a day. Drinks approximately 24 beers a week if not more. 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 FAMILY HISTORY: Negative for cancer. REVIEW OF SYSTEMS: Ten point negative except for what is mentioned in HPI. LABORATORY DATA: White count 9, hematocrit 39, platelets are 296. Creatinine is 1.1. Glucose is 96. LFTs normal. CRP is 167. PHYSICAL EXAM: General: alert and oriented. Cardiac: regular rate and rhythm. Pulm: no increased work of breathing on nasal cannula oxygen Abdomen: soft nontender nondistended. Integument: warm dry no jaundice. Head and Neck: no cervical masses or scleral icterus. Lymph node: no cervical axillary or inguinal lad. Musculoskeletal: no muscle wasting Neuro: no focal deficit ASSESSMENT/PLAN: This is a 26-year-old, [place] male, who presents with evidence of pneumonia and pancreatitis. In speaking with Dr. Pace, I agree after reviewing his films that this appears to be more of a run of the mill typical pneumonia. His tuberculin skin test was negative but a QuantiFERON gold is pending. The mediastinal lymph nodes are well below the jazmin and posterior. Would not be amenable to mediastinoscopy, and would need endoscopic transbronchial ultrasound-guided FNA but I suspect this is not going to be beneficial as he is clinically improving with antibiotics. We will treat this as more of a run of the mill pneumonia with likely aspiration given his alcoholism and pancreatitis. He needs aggressive pulmonary toileting. Pulmonology is following. May ultimately need a bronchoscopy. I think that would be the more reasonable 1st step, as I do not think mediastinoscopy would be beneficial. I am happy to perform this bronchoscopy, but Dr. Otero is following. We will continue to follow along as to the ongoing workup. cc: MD JESUS Cash
[2016-11-09] MEDS: SODIUM CHLORIDE 0.9% INJ SCH (20:13)
[2016-11-09] MEDS ORDERED: OFIRMEV 1000 MG/ISOTONIC SOLN 1,000 MG/100 ML BOTTLE IV ONE (20:15)
[2016-11-10] MEDS: VANCOMYCIN 1,700 MG in NS 250 ML IV SCH (01:00)
[2016-11-10] MEDS: LR 1,000 ML IV SCH ×2 (03:03→06:10)
[2016-11-10] MEDS: LIBRIUM PO SCH ×2 (03:25→08:15)
[2016-11-10] MEDS: DILAUDID IV PRN ×2 (03:25→09:33)
[2016-11-10] MEDS: DUONEB (A & A) INH SCH (03:31)
[2016-11-10 05:56] LABS: MANUAL DIFF NEEDED? NO
[2016-11-10 06:05] LABS: BASO% 0.7 % (0.0-0.8); EOS# 0.17 X1000 (0.0-0.7); HEMATOCRIT 38.7 % (42.0-52.0); HEMOGLOBIN 12.9 g/dL (14.0-18.0); IMM GRAN# 0.06 X1000 (0.0-0.04); IMM GRAN% 0.7 % (0.0-0.5); LYMPH# 1.58 X1000 (1.2-3.4); LYMPH% 18.2 % (20.5-51.1); MCH 29.2 PG (27-31); MCHC 33.3 g/dL (33-37); MCV 87.6 FL (81-99); MONO% 13.8 % (1.7-9.3); MPV 10.7 FL (7.4-10.4); NEUT% 64.6 % (42.2-75.2); PLT 326 X1000 (130-400); RBC 4.42 XMIL (4.7-6.1)
[2016-11-10 06:19] LABS: AGAP 14; BUN 10 mg/dL (8-22); CALCIUM 8.7 mg/dL (8.8-10.2); CHLORIDE 108 mmol/L (98-107); COSMO 289; POTASSIUM 3.6 mmol/L (3.5-5.1); SODIUM 146 mmol/L (136-145); TCO2 24 mmol/L (25-35)
[2016-11-10 07:52] VITALS: BP 144/96
[2016-11-10] MEDS: M.V.I.-12 10 ML, FOLIC ACID 1 MG, MAGNESIUM SULFATE 1 GM, THIAMINE 100 MG in NS 1,000 ML IV SCH (08:14)
[2016-11-10] MEDS: PROTONIX IV SCH (08:14)
[2016-11-10] MEDS: ZOSYN 3.375 GM/NS 3.375 GM/50 ML IVPB IV SCH (08:14)
[2016-11-10] MEDS: SODIUM CHLORIDE 0.9% INJ SCH (08:14)
--- NOTE | 2016-11-10 10:51 | PROGRESS NOTE ---
DATE: 11/10/2016 PRESENT ILLNESS: The patient is admitted the hospital with pancreatitis and bibasilar pneumonia, which I think is most likely secondary to aspiration because the patient consumes a lot of alcohol. He does have mediastinal adenopathy, but I think this is secondary to his aspiration pneumonia and not due to tuberculosis. As best I can determine at this time, the patient does not have tuberculosis, as manifested by a completely negative skin test for TB, which the patient told me was put on his arm when he was over at [place]. There is a QuantiFERON-TB test which is pending. MEDICATIONS: Patient is on vancomycin and Zosyn. PHYSICAL EXAMINATION: Vital Signs: Temperature is 98.2 degrees, pulse 75, respirations 17, blood pressure 144/96. General: This is an overweight, but otherwise healthy-appearing, young male. He is in no acute distress. Lungs: There were bibasilar rales. Cardiovascular: Regular heart rate. Abdomen: Soft and nontender. Neurologic: Patient is alert. He can move his extremities. LAB AND X-RAY: The CBC for today shows a white count of 8700, hemoglobin 12.9, and platelet count 326,000. Creatinine is 1.2, GFR is greater than 60. ASSESSMENT AND PLAN: The patient has pancreatitis and he has aspiration pneumonia. I, along with the patient's mother, told the patient that he needs to stop drinking alcohol completely and also stop smoking cigarettes. Our plan is to send the patient home on a combination of Augmentin and ciprofloxacin. I plan on seeing the patient in my office 2 weeks after discharge to examine him and also to repeat his chest x-ray. The patient's main comorbidities are that he smokes cigarettes and he consumes alcohol and has pancreatitis. cc: Shemar Pace MD
--- NOTE | 2016-11-10 11:52 | DISCHARGE SUMMARY ---
ADMISSION DATE: 11/04/2016 DISCHARGE DATE: 11/10/2016 CONSULTATIONS: 1. Dr. Otero with Pulmonology. 2. Dr. Shemar Pace with Infectious Disease. 3. Dr. Akin Dos Santos with General Surgery. DISCHARGE DIAGNOSES: 1. Sepsis on presentation secondary to underlying pneumonia, resolved. 2. Acute hypoxemic respiratory distress on presentation due to bilateral pneumonia, resolved. 3. Severe mediastinal lymphadenopathy, suspicious for granulomatosis disease. Histoplasmosis antigen was negative, human immunodeficiency virus negative, tuberculosis was also negative. Consults for infectious disease as well as general surgery were obtained. Since the lymph nodes are below the jazmin and posterior, they would not be amenable to a mediastinoscopy, would not be endoscopic transbronchial ultrasound-guided but would not be beneficial as he is clinically improving with antibiotics and would treat more as a ru of the mill pneumonia, likely aspiration given his alcoholism and pancreatitis, and continue his aggressive pulmonary toileting. The patient will be sent home on a combination of Augmentin and Cipro, and see Dr. Pace in the office in 2 weeks. 4. Hyponatremia, improved. 5. 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 6. Alcohol abuse. He has been educated along with his mother that the patient needs to stop drinking alcohol completely, as well as smoking cessation, as well as daily education on cessation and his increased risk for aspiration pneumonia. HOSPITAL COURSE: Mr. Valdes is a 26-year-old male with a history of chronic alcohol abuse, recurrent pancreatitis. Presented to the ED with abdominal pain, stating that he knows he has pancreatitis. He was found to have an amylase of 1221 and a lipase greater than 3000, as well as a blood alcohol level of 132 and cocaine positive urine drug screen. Initially , he was admitted at the [facility] for abdominal pain secondary to pancreatitis. His imaging also showed a lung mass with extensive adenopathy. They were ruling out TB or a primary fungal lung infection. They did discuss the case with Dr. Huang. Patient was transferred to [facility] for possible bronchoscopy. He was aggressively IV hydrated. He was given Dilaudid for pain , as well as Compazine and Zofran. He was made n.p.o. and put on a low-dose Librium taper as well as daily banana bags, and monitored very closely for signs and symptoms of withdrawals and DTs. He was also septic secondary to underlying pneumonia and in acute hypoxic respiratory distress secondary to his bilateral pneumonia. In reference to his mediastinal lymphadenopathy, it was suspicious for granulomatosis disease. However, his serologies for his histoplasma antigen were negative. HIV negative. TB negative. ID stated that he could be discharged home on p.o. antibiotics. He was not a surgical candidate per surgery and to continue to treat as a pneumonia. It was also discussed with him daily the need for his illicit drug use cessation, his alcohol cessation, as well as smoking cessation and the means to quit. Clinically, over the last several days, the patient has improved. He is being discharged home today. Dr. Akin Dos Santos does think at some point in the near future that he may ultimately need a bronchoscopy, though he will continue to either follow up with Dr. Dos Santos or Dr. Otero for this workup on an outpatient basis. The patient's vital signs at time of his discharge, temperature is 98.2 degrees, heart rate 75, respirations 18, blood pressure 144/96, O2 is 96% on room air. DISCHARGE DIET: Full liquid, advance as tolerated. DISCHARGE MEDICATIONS: 1. Augmentin 875 mg p.o. q.12 hours. 2. Cipro 500 mg p.o. q.12 hours. 3. [place] 7.5/325 one each p.o. q.4 to q.6 hours p.r.n. 4. 4 mg p.o. q.4 hours p.r.n. FOLLOWUP: The patient is being discharged home. Again, [facility] has [facility]. He will follow up with Dr. Shemar Pace on 11/24/2016 at 8:15 a.m. He will take all antibiotics as prescribed. He can either follow up with Dr. Otero or Dr. Akin Dos Santos for possible bronchoscopy in the future. The patient can return to the ED for any worsening of symptoms. Again, he has been advised against illicit drug use, alcohol abstinence, as well as smoking cessation. DISCHARGE TIME: 30 minutes. Dictated by SEGUNDO Harris for Roque Ramirez MD cc: Roque Ramirez MD [facility]
--- NOTE | 2016-11-10 15:46 | DISCHARGE SUMMARY ---
ADMISSION DATE: 11/04/2016 DISCHARGE DATE: ADDENDUM: PERTINENT PROCEDURES: 1. Abdomen and pelvis CT showed new nodular infiltrate in the posterior right lobe, significant mediastinal adenopathy, recurrent pancreatitis of the pancreatic tail, and stable dilatation of the downstream main pancreatic duct. 2. Abdominal ultrasound suggestive of hepatic steatosis, poor visualization of the pancreas. 3. Chest CT showed significant worsening atelectasis and infiltrate involving the right lower lung zones as compared to previous study. Development of atelectasis and/or infiltrate in the left lower lung zone. Severe mediastinal and right hilar lymphadenopathy that is stable compared to a very recent previous study left upper quadrant related to nonacute pancreatitis. Dictated by SEGUNDO Harris for Roque Ramirez MD cc: Roque Ramirez MD
== END 2016-11-10 11:41 | disposition home or self-care (01) ==
LOC: P.ED 02:53 → SUATTDRO 02:54 → P.MEDSURG 07:05 → 3N 11-08 10:39
PROVIDERS: ATTEND Internal Medicine

== ENCOUNTER 2016-11-10 15:59 | Inpatient (IN) ==
[2016-11-10] MEDS ORDERED: ZOFRAN IV ONE ×2 (17:20→20:29)
[2016-11-10] MEDS ORDERED: DILAUDID IV ONE (17:20)
[2016-11-10] MEDS ORDERED: NS 1,000 ML IV ONE ×2 (17:20→19:27)
--- NOTE | 2016-11-10 17:59 | PROVIDER DOCUMENTATION ---
This chart was entered by Myrtle Bowden Scribe, acting as scribe for Dick Flower MD. HPI-Abdominal Pain/GI Problem - General Source: patient, family (MOTHER) - History of Present Illness-ABD Nature of Presenting Problems: 26 y/o M presents to ED cc of abd pain. Pt was admitted and left this morning. Pt was admitted for pancreatitis and pneumonia. Pt states this am before he left he was feeling better. Pt states an hour ago his pain started back up. Pt is alert and oriented. Pt is in obvious pain. Pt bicep is on the R arm is also tender to touch and hot. R arm is where pt IV was placed. Abdominal Pain Onset Location: reports: LUQ Pain Radiation: reports: no radiation Quality of Pain: reports: cramping Severity in ED: reports: mild Onset/Duration: reports: just prior to arrival, 1/2 hour ago Timing: reports: still present Activities at Onset: reports: light activity Modifying Factors: improves with: nothing Associated Symptoms: reports: pain with inspiration, other (ABD PAIN/ R ARM PAIN /HOTTNESS). denies: back/neck pain, chest pain, constipation, cough, fever/ chills, genitourinary problems, headaches, heartburn, sinus congestion/drainage , nausea, seizure, shortness of breath, swelling/mass in abdomen Last BM: unsure Dark Stools Present?: reports: none noticed Rectal Bleeding: reports: none Rectal Pain: reports: none Emesis Description: reports: none Bruising or Bleeding Gums?: No Similar Symptoms Previously?: Yes Recently seen or treated by another doctor?: Yes <Dick Flower - Last Filed: 11/10/16 17:58> <Rommel Maki - Last Filed: 11/10/16 20:32> - General Chief Complaint: Abdominal Pain Stated Complaint: RECHECK Time Seen by Provider: 11/10/16 16:47 Allergies/Adverse Reactions: Patient Allergies Allergy/AdvReac Type Severity Reaction Status Date / Time No Known Allergies Allergy Verified 11/10/16 17:22 Review of Systems - Adult - REVIEW OF SYSTEMS - ADULT Constitutional: denies: chills, fever Ears, Nose, Mouth & Throat: denies: ear pain, throat pain Cardiovascular: denies: chest pain, palpitations Respiratory: denies: cough, shortness of breath Gastrointestinal: reports: abdominal pain. denies: diarrhea, nausea, vomiting Genitourinary: denies: discharge, frequency Musculoskeletal: denies: bone pain, back pain, joint swelling, muscle aches Endocrine: reports: other (PT R ARM IS HOT TO TOUCH . SAME ARM IV SITE). denies: increased hunger <Dick FlowerNilsa - Last Filed: 11/10/16 17:58> - REVIEW OF SYSTEMS - ADULT Constitutional: reports: see HPI. denies: fever <Rommel Maki - Last Filed: 11/10/16 20:32> Past History - Adult - PAST MEDICAL HISTORY-ADULT Review of Records: reports: Old Records Reviewed, Nursing Assessment Review Major Childhood Illnesses: reports: denies history Cardiovascular: reports: denies history Respiratory: reports: denies history Gastrointestinal: reports: pancreatitis Obstetrical/Gynecological: reports: denies history Genitourinary: reports: denies history Musculoskeletal: reports: denies history Neurological: reports: denies history Endocrine/Immune: reports: denies history Other Conditions: reports: denies history - PRIOR SURGERIES/PROCEDURES Surgical/Procedure History: reports: reviewed, not pertinent - PRIOR HOSPITALIZATIONS Prior Hospitalizations: reports: for other non-related - IMMUNIZATION STATUS Childhood Immunizations: See Nurse Assessment Flu Vaccine: See Nurse Assessment - FAMILY HISTORY Family History: reviewed, not pertinent - SOCIAL HISTORY Smoking: denies, non-smoker Substance Use: alcohol <Dick FlowerNilsa - Last Filed: 11/10/16 17:58> - PAST MEDICAL HISTORY-ADULT Review of Records: reports: Old Records Reviewed <Rommel Maki - Last Filed: 11/10/16 20:32> Physical Exam-General - PHYSICAL EXAM-ADULT Initial Vital Signs Reviewed: Yes - CONSTITUTIONAL General Appearance: appears well, alert, no apparent distress - EYES Eyes: PERRL/EOMI, pink conjunctivae - HEAD, EARS, NOSE, MOUTH & THROAT HENMT: moist mucous membranes, normal ENT inspection - RESPIRATORY Respiratory: chest non-tender, lungs clear, normal breath sounds - CARDIOVASCULAR Cardiovascular: normal peripheral pulses, no edema, tachycardia - GASTROINTESTINAL (ABDOMEN) Abdominal Exam: normal bowel sounds, soft, tenderness (LUQ) - LYMPHATIC Lymphatic: no adenopathy - MUSCULOSKELETAL Back Exam: no CVA tenderness, no vertebral tenderness Extremity: normal range of motion, non-tender, normal gait - SKIN Integumentary: normal turgor, warm/dry, pallor - NEUROLOGIC Neurologic: grossly normal, no motor/sensory deficits - PSYCHIATRIC Psych/Mental Status: oriented x 3 <Dick Flower - Last Filed: 11/10/16 17:58> - CONSTITUTIONAL General Appearance: alert, no apparent distress <Rommel Maki - Last Filed: 11/10/16 20:32> Progress - PLAN OF CARE/RESULTS Progress/Plan/Lab Results: Vital Signs - 8 hr 11/10/16 16:08 Temperature 98.0 F Pulse Rate 120 H Respiratory Rate 24 Blood Pressure 145/92 O2 Sat by Pulse Oximetry 97 - CHANGE OF SHIFT REPORT (ED Provider) Report Given and Care Transferred to:: Alexia(AYLEEN) Time of Transfer: 18:00 Items Pending: Labs, CT/MRI Results, Physician Consult/Arrival <Dick Flower - Last Filed: 11/10/16 17:58> - PLAN OF CARE/RESULTS Progress/Plan/Lab Results: Vital Signs - 8 hr 11/10/16 16:08 11/10/16 19:15 Temperature 98.0 F Pulse Rate 120 H 92 H Respiratory Rate 24 29 H Blood Pressure 145/92 158/117 O2 Sat by Pulse Oximetry 97 92 L Laboratory Results - last 24 hr 11/10/16 11/10/16 11/10/16 17:37 17:37 17:37 WBC 15.00 H RBC 4.99 Hgb 14.5 Hct 43.4 MCV 87.0 MCH 29.1 MCHC 33.4 RDW Std Deviation 14.0 Plt Count 359 MPV 11.0 H Immature Gran % (Auto) 0.5 Neut % (Auto) 82.2 H Lymph % (Auto) 7.1 L [place] % (Auto) 9.4 H Eos % (Auto) 0.5 Baso % (Auto) 0.3 Immature Gran # (Auto) 0.07 H Neut # (Auto) 12.35 H Lymph # (Auto) 1.06 L [place] # (Auto) 1.41 H Eos # (Auto) 0.07 Baso # (Auto) 0.04 Sodium 139 Potassium 4.1 Chloride 103 Carbon Dioxide 21 L Anion Gap 15 BUN 10 Creatinine 1.3 H Estimated GFR/1.73 m2 > 60 BUN/Creatinine Ratio 8 Glucose 93 Calculated Osmolality 276 Calcium 9.3 Total Bilirubin 0.28 AST 28 ALT 35 Alkaline Phosphatase 88 Total Protein 7.7 Albumin 3.4 L Globulin 4.3 Albumin/Globulin Ratio 0.8 Amylase 102 Lipase 192 H Plasma Lactate 1.3 Urine Source 11/10/16 19:25 WBC RBC Hgb Hct MCV MCH MCHC RDW Std Deviation Plt Count MPV Immature Gran % (Auto) Neut % (Auto) Lymph % (Auto) [place] % (Auto) Eos % (Auto) Baso % (Auto) Immature Gran # (Auto) Neut # (Auto) Lymph # (Auto) [place] # (Auto) Eos # (Auto) Baso # (Auto) Sodium Potassium Chloride Carbon Dioxide Anion Gap BUN Creatinine Estimated GFR/1.73 m2 BUN/Creatinine Ratio Glucose Calculated Osmolality Calcium Total Bilirubin AST ALT Alkaline Phosphatase Total Protein Albumin Globulin Albumin/Globulin Ratio Amylase Lipase Plasma Lactate Urine Source CLEAN CATCH Orders Category Date Time Status Saline Loc DIRECTED Care 11/10/16 17:20 Active NPO Diet 11/10/16 17:[address] ABD/PELVIS W/ IV CONT ONLY [CT] Stat Exams 11/10/16 17:20 Completed AMYLASE [CHEM] Stat Lab 11/10/16 17:37 Completed BLOOD CULTURE [BLDCUL] Stat Lab 11/10/16 19:40 Uncollected CBC WITH ELECTRONIC DIFF [HEME] Stat Lab 11/10/16 17:37 Completed COMPREHENSIVE METABOLIC PANEL [CHEM] Stat Lab 11/10/16 17:37 Completed LACTATE, PLASMA [CHEM] Stat Lab 11/10/16 17:37 Completed LIPASE [CHEM] Stat Lab 11/10/16 17:37 Completed URINALYSIS W/POSS RFLX CULT-1 [URINALYSIS] Stat Lab 11/10/16 19:25 Results 0.9% Sodium Chloride Inj [Ns] 1,000 ml Med 11/10/16 17:20 Discontinued IV 999 mls/hr 0.9% Sodium Chloride Inj [Ns] 1,000 ml Med 11/10/16 19:27 Active IV 999 mls/hr CefTRIAXONE 1 GM/NS [Rocephin 1 gm/Ns] Med 11/10/16 19:40 Active 1 gm in 50 ml IV NOW Hydromorphone [Dilaudid] Med 11/10/16 17:20 Discontinued 2 mg IV NOW ONE Ondansetron [Zofran] Med 11/10/16 17:20 Discontinued 4 mg IV NOW ONE Result Diagrams: 11/10/16 17:37 11/10/16 17:37 - CT/MRI 1 CT Study: Abdomen, Pelvis (worsening infiltrates; worsening pancreatitis; worsening splenomegaly; pyelonephritis vs acute tubular necrosis) - CONSULTS/PCP/HOSPITALIST Notification #1 *Consult/PCP/Hospitalist*: Dr. Linder Time Discussed: 20:31 Consult Disposition: Admit <Rommel Maki - Last Filed: 11/10/16 20:32> Departure <Dick Flower - Last Filed: 11/10/16 17:58> - Departure Date of Disposition Decision: 11/10/16 Time of Disposition Decision: 20:31 Certified Medical Emergency: Emergent - Critical Care Note This patient required my direct & personal management of CC.: No <Rommel Maki - Last Filed: 11/10/16 20:32> - Departure DIAGNOSIS: Pancreatitis Qualifiers: Chronicity: chronic Pancreatitis type: unspecified pancreatitis type Qualified Code(s): K86.1 - Other chronic pancreatitis Pneumonia Qualifiers: Pneumonia type: due to unspecified organism Laterality: bilateral Lung location : unspecified part of lung Qualified Code(s): J18.9 - Pneumonia, unspecified organism Disposition: ADMITTED INPATIENT 09 Condition: Stable Referrals and Follow-Ups: None,PCP [Primary Care Provider] - Attestation - Physician/ MARITZA Attestation Patient care was provided by Advanced Practice Provider:: Yes Advanced Practice Provider:: Rommel Maki Advanced Practice Provider documentation review:: The Mid-level provider documentation, treatment plan and medical decision making was reviewed by the physician who agrees with all treatment and medical decision making by the MLP. <Rommel Maki - Last Filed: 11/10/16 20:32> This chart was documented by the indicated scribe, (Myrtle Bowden Scribe) and accurately reflects the services I performed and decisions made by Ching frausto Tom-Meka M., MD, as attested by the provider's signature.
[2016-11-10 18:06] LABS: MANUAL DIFF NEEDED? NO
[2016-11-10 18:09] LABS: BASO% 0.3 % (0.0-0.8); EOS# 0.07 X1000 (0.0-0.7); EOS% 0.5 % (0.0-10.0); HEMATOCRIT 43.4 % (42.0-52.0); HEMOGLOBIN 14.5 g/dL (14.0-18.0); IMM GRAN# 0.07 X1000 (0.0-0.04); IMM GRAN% 0.5 % (0.0-0.5); LYMPH# 1.06 X1000 (1.2-3.4); LYMPH% 7.1 % (20.5-51.1); MCH 29.1 PG (27-31); MCHC 33.4 g/dL (33-37); MONO# 1.41 X1000 (0.11-0.59); MONO% 9.4 % (1.7-9.3); NEUT% 82.2 % (42.2-75.2); PLT 359 X1000 (130-400); RBC 4.99 XMIL (4.7-6.1)
[2016-11-10 18:35] LABS: AGAP 15; ALBUMIN 3.4 g/dL (3.5-5.0); ALKALINE PHOSPHATASE 88 U/L (32-122); AMYLASE 102 U/L (20-200); BUN 10 mg/dL (8-22); CALCIUM 9.3 mg/dL (8.8-10.2); CHLORIDE 103 mmol/L (98-107); COSMO 276; GOT 28 U/L (10-34); GPT 35 U/L (10-44); LIPASE 192 U/L (13-60); POTASSIUM 4.1 mmol/L (3.5-5.1); SODIUM 139 mmol/L (136-145); TCO2 21 mmol/L (25-35); TOTAL BILIRUBIN 0.28 mg/dL (0.20-1.00); TOTAL PROTEIN 7.7 g/dL (6.3-8.3)
--- NOTE | 2016-11-10 19:12 | Diag Imaging Result Doc PS360 ---
CT ABD/PELVIS W/ IV CONT ONLY - 11/10/2016 INDICATION: recent pancreatitis dc now worsened TECHNIQUE: A CT dose reduction protocol was used. COMPARISON: 11/04/2016, 11/05/2016 FINDINGS: There is continued worsening in the significant bibasilar infiltrates. There is grossly stable extensive mediastinal and hilar adenopathy. There are new trace pleural effusions. There is slight worsening in inflammation about the pancreatic tail compatible with worsening pancreatitis. The splenic vein remains patent. There is worsening splenomegaly. The spleen size now measures 13.6 x 5.4 cm. Stable mild fatty change of the liver but no liver masses. There is now severe abnormality of enhancement of the kidneys which are heterogeneous in enhancement bilaterally. No hydronephrosis or hydroureter. No bowel obstruction or inflammation. No free air or free fluid. Urinary bladder, prostate, and rectum are normal. Bony structures are intact. IMPRESSION: 1. Severe worsening in bibasilar infiltrates and new pleural effusions. 2. Worsening pancreatitis of the pancreatic tail. 3. Worsening splenomegaly. 4. New significant, severe abnormal enhancement of the kidneys. The pattern is compatible with diffuse pyelonephritis or acute tubular necrosis. Electronically signed by Eduardo Benitez 11/10/2016 7:10 PM
[2016-11-10 19:34] LABS: URINE CULTURE NEEDED? NO; URINE MICRO REVIEW NEEDED? NO; URINE SOURCE CLEAN CATCH
[2016-11-10] MEDS ORDERED: ROCEPHIN 1 GM/NS 1 GM/50 ML IVPB IV ONE (19:40)
[2016-11-10 19:50] LABS: BILIRUBIN URINE NEGATIVE (NEGATIVE); BLOOD URINE NEGATIVE (NEGATIVE); COLOR YELLOW; GLUCOSE URINE NEGATIVE (NEGATIVE); LEUKOCYTES URINE NEGATIVE (NEGATIVE); NITRITE URINE NEGATIVE (NEGATIVE); PH URINE 7.5; PROTEIN URINE NEGATIVE (NEGATIVE); SP GRAVITY URINE 1.018; TURBIDITY URINE CLEAR (CLEAR); UROBILINOGEN URINE NORMAL (NORMAL)
[2016-11-10 19:52] LABS: UR EPITHELIAL CELLS <10 /HPF (<10); URINE BACTERIA NEGATIVE /HPF; URINE RBC <10 /HPF (<10); URINE WBC <10 /HPF (<10)
[2016-11-10] MEDS ORDERED: MORPHINE IV ONE (20:29)
[2016-11-10] MEDS ORDERED: TYLENOL PO PRN (21:17)
[2016-11-10] MEDS ORDERED: VANCOMYCIN IV PER PHARMACY MISC SCH (21:30)
[2016-11-10] MEDS ORDERED: VANCOMYCIN 1,700 MG in NS 250 ML IV SCH (22:00)
[2016-11-10] MEDS: DILAUDID IV PRN (22:50)
[2016-11-10] MEDS: LEVAQUIN 750 MG/D5W 750 MG/150 ML IVPB IV SCH (22:50)
[2016-11-10] MEDS: PROTONIX IV SCH (22:50)
[2016-11-10] MEDS: ZOSYN 3.375 GM/NS 3.375 GM/50 ML IVPB IV SCH (22:50)
[2016-11-10] MEDS: NS 1,000 ML IV SCH (22:53)
[2016-11-10 23:02] LABS: UR AMPHETAMINES QUAL NONE DETECTED (NONE DETECT); UR BARBITUATES QUAL NONE DETECTED (NONE DETECT); UR BENZODIAZEPIN QUAL PRESUMPTIVE POSITIVE (NONE DETECT); UR CANNABINOIDS QUAL NONE DETECTED (NONE DETECT); UR COCAINE QUAL NONE DETECTED (NONE DETECT); UR METHADONE QUAL NONE DETECTED (NONE DETECT); UR OPIATES QUAL NONE DETECTED (NONE DETECT); UR OXYCODONE QUAL NONE DETECTED (NONE DETECT); UR PCP QUAL NONE DETECTED (NONE DETECT)
[2016-11-10] MEDS: DUONEB (A & A) INH SCH (23:50)
--- NOTE | 2016-11-11 01:39 | HISTORY AND PHYSICAL ---
CHIEF COMPLAINT: Worsening abdominal pain. HISTORY OF PRESENT ILLNESS: Mr. Valdes is a 26-year-old male who presents to the emergency room tonight after being discharged today at around 11 a.m. He was admitted on 11/04/2016 for pneumonia and pancreatitis. He was treated with IV vancomycin and Zosyn during his hospital stay. ID was consulted. Several other diagnoses were ruled out during his admission such as histoplasmosis, HIV and tuberculosis. It was thought to be aspiration pneumonia related to him having a history of alcoholism and recurrent pancreatitis. He was discharged home on Augmentin and Cipro. The patient stated that he dropped those off at the pharmacy and went home waiting for them to be filled. He drank water and had increasing pain. He states that he did not eat anything. Stated that he did not drink alcohol or take any type of illicit drugs during his time at home. On arrival back to the emergency room, a CT of his abdomen and pelvis with contrast was obtained which showed severe worsening in basilar infiltrates and new pleural effusions, worsening pancreatitis of the pancreatic tail, worsening splenomegaly, new significant severe abnormal enhancement of the kidneys likely pyelonephritis or ATN. The patient did have a mildly elevated creatinine, however, his GFR remain normal. Did have an elevated white blood cell count of 15,000 and his lipase was elevated at 192. His serum alcohol level was 0. The patient was afebrile but tachycardic on arrival and since has become tachypneic and hypoxic requiring oxygen. Patient will be admitted to the medical floor inpatient for further evaluation and treatment. PAST MEDICAL HISTORY: 1. Recurrent pancreatitis. 2. Pneumonia. 3. Alcohol abuse. 4. Tobacco abuse. 5. Cocaine abuse. PREVIOUS SURGICAL HISTORY: Appendectomy. SOCIAL HISTORY: He has a history of alcohol abuse. He states that he did not have alcohol since leaving the hospital. He denies using illicit drugs since his recent stay in the hospital. He does use tobacco products stating that he smokes roughly 6 cigarettes a day. ALLERGIES: No known drug allergies. HOME MEDICATIONS: As noted above in the HPI. The patient was discharged on Cipro and Augmentin. Otherwise, the patient states that he does not take home medications. FAMILY HISTORY: Mother had diabetes mellitus as well as his paternal grandparents having diabetes mellitus. Father had hypertension. REVIEW OF SYSTEMS: Fourteen point review of systems conducted with the patient. He was positive for abdominal pain greatest on the left side, nausea but no vomiting. He denied shortness of breath or cough with sputum, cough in general. Denied chest pain. Denied hematemesis, hemoptysis, hematuria, melena, hematochezia, dysuria or fever or chills. All other systems were reviewed and found to be negative. PHYSICAL EXAMINATION: VITAL SIGNS: Temperature 98 degrees, pulse 120 on arrival, after receiving fluids his pulse is now 92, respirations on arrival were 24, they are now 29, blood pressure 158/117, oxygen saturation 92% on room air. GENERAL: A 26-year-old male lying in the ER stretcher. Was resting comfortably on arrival to the interview the patient. However, he states that his pain has not been controlled with the pain medicine he has been given. He is in no acute distress at this time. HEENT: Head is atraumatic, normocephalic. Pupils equal, round, reactive to light. Extraocular eye movement intact. Sclerae is anicteric. Oral mucosa was dry with chapping to his lips noted. The patient does have a facial piercing which was also noted. NECK: Supple. No JVD. No thyromegaly. Trachea is midline. CARDIAC: S1-S2 appreciated. No murmurs, gallops, rubs. Regular rhythm. The patient was sinus tachycardia on arrival. LUNGS: Clear to auscultation bilaterally. No rhonchi, wheezes or rales. CHEST: Nontender to palpation. Symmetrical rise and fall with respirations. ABDOMEN: Soft, nondistended. Tender in the left upper and lower quadrants, most significantly tender in the epigastric and left upper quadrant. The patient had negative Reynolds's sign. Was not tender in his right upper quadrant. Bowel sounds present in all 4 quadrants, normoactive. No pulsatile mass. Liver and spleen borders could not clearly be palpated as patient was very tender during examination. BACK: CVA tenderness noted greater on the left. EXTREMITIES: No clubbing, cyanosis, or edema. 2+ pedal pulses. NEUROLOGICAL: Alert and oriented x3. Cranial nerves 2-12 appear to be grossly intact. SKIN: Warm, dry, intact. No acute lesions or rash. Facial piercing was noted. GENITOURINARY: Patient voids. No bladder distention. Otherwise deferred. DIAGNOSTIC DATA: CT of the abdomen and pelvis showed severe worsening in bibasilar infiltrates and new pleural effusions, worsening pancreatitis of the pancreatic tail, splenomegaly, new significant severe abnormal enhancement of the kidneys. The pattern is compatible with diffuse pyelonephritis or acute tubular necrosis. LABORATORY DATA: WBC 15, hemoglobin 14.5, hematocrit 43.4, platelet count 359,000. Sodium 139, potassium 4.1, chloride 103, carbon dioxide 21, BUN 10, creatinine 1.3. GFR remains greater than 60. Lipase 192, amylase 102. Plasma lactate 1.3. Urine unremarkable. Serum alcohol is negative. ASSESSMENT AND PLAN: 1. Worsening bibasilar pneumonia. This was thought to be aspiration in nature. The patient was discharged home on Cipro and Augmentin. Related to his worsening CT scan, we will place patient on Levaquin, Zosyn and vancomycin to cover Pseudomonas gram-negative, gram-positive, atypicals and MRSA. We will reconsult Shemar Pace for help in antibiotic choice and additional testing. We will place the patient on DuoNebs, oxygen per protocol. 2. Worsening pancreatitis of the pancreatic tail. Patient's lipase had returned to normal levels while in the hospital. He was at home for roughly 5-6 hours. States that he did not eat and only had water and returned. The CT showed as noted above worsening pancreatitis of the pancreatic tail. We will place patient NPO, treat with fluid rehydration and Dilaudid for pain control as needed. We will cover patient with a PPI, Protonix 40 mg IV q.24 hours. 3. Acute pyelonephritis versus acute tubular necrosis. As noted above, the patient will be started on aggressive fluids. We will trend his BUN and creatinine. We will consider an ultrasound if needed to rule out any type of obstruction if BUN and creatinine continue to rise with fluids. We will not consult Dr. Goodwin at this moment. As noted above, IV antibiotics will be administered which would cover pyelonephritis. 4. Alcohol, tobacco and previous illicit drug use. The patient was in the hospital for around 5 days. He has not had alcohol since that time. He states that he did does smoke around 6 cigarettes per day and states that he has not used cocaine or any illicit drugs. Nursing to monitor patient for withdrawal type symptoms. However, it is unlikely that he would have any type of alcohol or drug withdrawal since he has been in the hospital recently. He was on a low-dose Librium taper and receiving banana bags on his previous admission. 5. Further recommendations per patient clinical course. Dictated by SEGUNDO Mccormack for Deniz Linder MD cc: SEGUNDO Mccormack MD Leroy F. Harris, MD
[2016-11-11] MEDS: DILAUDID IV PRN ×9 (02:13→22:55)
[2016-11-11] MEDS: DUONEB (A & A) INH SCH ×4 (03:59→22:09)
[2016-11-11] MEDS: ZOSYN 3.375 GM/NS 3.375 GM/50 ML IVPB IV SCH ×4 (05:23→20:52)
[2016-11-11] MEDS: NS 1,000 ML IV SCH ×3 (05:23→17:25)
[2016-11-11 06:58] LABS: MANUAL DIFF NEEDED? NO
[2016-11-11 07:11] LABS: BASO% 0.4 % (0.0-0.8); EOS# 0.09 X1000 (0.0-0.7); EOS% 0.9 % (0.0-10.0); HEMATOCRIT 39.3 % (42.0-52.0); HEMOGLOBIN 12.8 g/dL (14.0-18.0); IMM GRAN# 0.09 X1000 (0.0-0.04); IMM GRAN% 0.9 % (0.0-0.5); LYMPH# 1.16 X1000 (1.2-3.4); LYMPH% 11.5 % (20.5-51.1); MCH 28.6 PG (27-31); MCHC 32.6 g/dL (33-37); MCV 87.9 FL (81-99); MONO# 1.39 X1000 (0.11-0.59); MONO% 13.8 % (1.7-9.3); MPV 10.9 FL (7.4-10.4); NEUT% 72.5 % (42.2-75.2); PLT 335 X1000 (130-400); RBC 4.47 XMIL (4.7-6.1)
[2016-11-11 07:25] LABS: AGAP 16; BUN 11 mg/dL (8-22); CALCIUM 8.9 mg/dL (8.8-10.2); CHLORIDE 108 mmol/L (98-107); COSMO 289; POTASSIUM 3.6 mmol/L (3.5-5.1); SODIUM 146 mmol/L (136-145); TCO2 22 mmol/L (25-35)
[2016-11-11] MEDS: LOVENOX SUBQ SCH (08:07)
--- NOTE | 2016-11-11 16:22 | PROGRESS NOTE ---
DATE: 11/11/2016 SUBJECTIVE: Today, Mr. Valdes refers to be doing fine. He continues to have significant abdominal pain. OBJECTIVE: Vital signs: Blood pressure is 139/79, pulse of 88, respiration is 19, temperature 97.7. General: Mr. Valdes is a 26-year-old, male. He is in bed, no distress. HEENT: Mucosa is pink and moist. Anicteric. Acyanotic. Neck: Supple. Chest: Good air entry bilateral. No crepitations. No rhonchi. Cardiovascular: Regular rate and rhythm. Abdomen: Soft, mildly tender. ASIC ENGINEER: Patient is alert and oriented x4. There is no focal neurological deficit. LABORATORY DATA: WBC is 10.05, hemoglobin is 12.8, platelet count of 335. Chemistry is reviewed. Sodium is 146, potassium is 3.6, chloride is 108, bicarb is 22, creatinine is 1.4. Lipase went up to 192. CURRENT MEDICATIONS: 1. Dilaudid 1 mg IV q.2 p.r.n. 2. Vancomycin. 3. Zosyn. ASSESSMENT: 1. Recurrent pancreatitis. 2. Acute pyelonephritis versus acute tubular necrosis on imaging. 3. History of alcohol and tobacco abuse. 4. Worsening bibasilar pneumonia. Patient has been placed on antibiotics. PLAN: In general, Mr. Valdes was just discharged from the hospital yesterday and then he came right back a couple hours later, with worsening abdominal pain. A CT scan shows worsening of the pancreatitis of the pancreatic tail. We will keep him n.p.o., continue with the current symptomatic management. Continue with the antibiotics for the chest infection. I will await the results for the blood cultures and urine cultures. cc: Pineda Hickman MD
[2016-11-11] MEDS: VANCOMYCIN 1,700 MG in NS 250 ML IV SCH (17:26)
[2016-11-11] MEDS: LR 1,000 ML IV SCH (22:56)
[2016-11-11] MEDS: SODIUM CHLORIDE 0.9% INJ SCH (22:57)
[2016-11-11] MEDS: PROTONIX IV SCH (22:57)
[2016-11-11] MEDS: LEVAQUIN 750 MG/D5W 750 MG/150 ML IVPB IV SCH (22:57)
[2016-11-12] MEDS: DILAUDID IV PRN ×9 (01:12→22:45)
[2016-11-12] MEDS: ZOSYN 3.375 GM/NS 3.375 GM/50 ML IVPB IV SCH ×4 (02:31→20:00)
[2016-11-12] MEDS: DUONEB (A & A) INH SCH ×4 (03:51→21:40)
[2016-11-12] MEDS: LR 1,000 ML IV SCH ×4 (03:55→20:07)
[2016-11-12 06:10] LABS: MANUAL DIFF NEEDED? NO
[2016-11-12 06:16] LABS: BASO% 0.6 % (0.0-0.8); EOS# 0.19 X1000 (0.0-0.7); EOS% 2.4 % (0.0-10.0); HEMATOCRIT 38.5 % (42.0-52.0); HEMOGLOBIN 12.8 g/dL (14.0-18.0); IMM GRAN# 0.06 X1000 (0.0-0.04); IMM GRAN% 0.8 % (0.0-0.5); LYMPH# 1.17 X1000 (1.2-3.4); LYMPH% 14.9 % (20.5-51.1); MCH 28.9 PG (27-31); MCHC 33.2 g/dL (33-37); MCV 86.9 FL (81-99); MONO# 0.98 X1000 (0.11-0.59); MONO% 12.5 % (1.7-9.3); MPV 10.7 FL (7.4-10.4); NEUT% 68.8 % (42.2-75.2); PLT 351 X1000 (130-400); RBC 4.43 XMIL (4.7-6.1)
[2016-11-12 06:34] LABS: AGAP 17; BUN 7 mg/dL (8-22); CALCIUM 8.9 mg/dL (8.8-10.2); CHLORIDE 106 mmol/L (98-107); COSMO 288; LIPASE 33 U/L (13-60); POTASSIUM 3.5 mmol/L (3.5-5.1); SODIUM 146 mmol/L (136-145); TCO2 23 mmol/L (25-35)
[2016-11-12] MEDS: LOVENOX SUBQ SCH (08:47)
[2016-11-12] MEDS: VANCOMYCIN 1,700 MG in NS 250 ML IV SCH (12:23)
--- NOTE | 2016-11-12 16:14 | PROGRESS NOTE ---
DATE: 11/12/2016 CONCLUSION: The patient was just recently discharged from the hospital with pneumonia and pancreatitis. He was doing better. He went home. He came back in to the hospital because of severe abdominal pain which he said felt like it was from his pancreatitis. Also, as seen on CT scan, there are worsening bibasilar infiltrates where the patient had pneumonia and also worsening of his pancreatitis. Also, it was noted on CT that the patient has an increased renal enhancement which could be secondary to pyelonephritis or acute tubular necrosis. In view of the patient's urinalysis showing no white cells or bacteria, I suspect that the renal enhancement would be due to then acute tubular necrosis, even though his creatinine is only 1.2. RECOMMENDATIONS: I have discontinued Levaquin. The patient was discharged on Cipro, so starting back Levaquin would not be of much help if the patient got worse while on ciprofloxacin. In addition, I have discontinued vancomycin because the increased renal enhancement could be associated with acute tubular necrosis. Instead, I have started the patient on Zyvox. I talked to the patient's nurse and he is taking food and p.o. medications without difficulty. I agree with starting the patient on Zosyn. PHYSICAL EXAMINATION: Vital Signs: Temperature is 98.3 degrees, pulse 85, respirations 20, blood pressure 139/91. General: This is an obese, but otherwise healthy-appearing young male who is in no acute distress at this time. Lungs: Clear to auscultation. Cardiovascular : Regular heart rate. Abdomen: Soft and nontender. LABORATORY AND X-RAY: The patient's CT scan showed worsening bibasilar infiltrates, worsening pancreatitis, and increased renal enhancement. The patient's CBC shows a white count of 7830, hemoglobin 12.8, and platelet count 351,000. Creatinine is 1.2. GFR is greater than 60. Blood cultures are sterile thus far. ASSESSMENT AND PLAN: The patient appears to have pneumonia and pancreatitis. I have discontinued vancomycin. Patient also could have acute tubular necrosis. The patient also could have, as seen on CAT scan, acute tubular necrosis. Therefore, the patient is going to be on Zosyn and Zyvox. As mentioned above, vancomycin and Levaquin have been discontinued. As mentioned above, the patient is going now to be on Zyvox p.o. and Zosyn IV. The patient had been on Augmentin and ciprofloxacin at home and those have been discontinued. Also, the Levaquin as started in the hospital and the vancomycin, both of these also have been discontinued. I have also ordered a Legionella urinary antigen and a Quantiferon TB test. COMORBIDITIES: Include the following: He smokes cigarettes and drinks alcoholic beverages, and he has underlying chronic or recurrent pancreatitis. cc: Shemar Pace MD MTDD
--- NOTE | 2016-11-12 16:47 | PROGRESS NOTE ---
DATE: 11/12/2016 SUBJECTIVE: Mr. Valdes states that he is feeling much better. He is not complaining of belly pain at this moment. He denies nausea, vomiting, diarrhea, constipation. He has been NPO and today I will advance the diet to clear liquid diet. Since this is a re-admission I will slowly advance the diet and hopefully in the afternoon today at night I will think advance it more and tomorrow morning if he tolerates a soft mechanical diet he will be able to go home. I had a large conversation with this patient regarding about drinking alcohol and fat food and he seems to understand that he needs to stop doing that. OBJECTIVE: Vital Signs: Temperature 98.3 degrees, pulse 85, respiratory rate 20, blood pressure 139/91, O2 saturation 95% on room air. HEENT: Head normocephalic. No trauma. PERRLA. Neck: Supple. No JVD. No masses. Central trachea. Chest: Clear to auscultation. Mild rhonchi at the bases bilaterally. Cardiovascular: RRR. Abdomen: Soft, nontender, nondistended. No hepatosplenomegaly. Extremities: No edema. No clubbing. No cyanosis. Neurological: The patient is alert and oriented x4. No focal neurological deficits. LABORATORY: WBC 7.8, hemoglobin 12.8, hematocrit 38.5, platelets 351,000. Sodium 146, potassium 3.5, chloride 106, bicarbonate 23, BUN 7, creatinine 1.2. Calcium 8.9. ASSESSMENT AND PLAN: 1. Recurrent pancreatitis, continue with the same management. Today I advanced the diet to clear liquid diet and in the afternoon I will advance the diet to full liquid diet. Hopefully tomorrow I will advance the diet again to soft mechanical diet. If he tolerates that diet I think he can be able to go home. 2. Acute pyelonephritis versus acute tubular necrosis on imaging. This patient is not complaining of any belly pain at this moment and the BUN and creatinine have been stable. BUN is 7 and creatinine today is 1.2. He came in with acute kidney injury but now it looks like it is better. 3. History of alcohol and tobacco abuse. This patient has been highly advised against tobacco and alcohol abuse. I will continue with daily cessation education. 4. Bibasilar pneumonia. Continue with antibiotics. He is not complaining of chest pain, shortness of breath or cough. cc: Lior Dominguez MD
[2016-11-12] MEDS: ZYVOX PO SCH (17:37)
[2016-11-13] MEDS: DILAUDID IV PRN ×4 (01:38→11:49)
[2016-11-13] MEDS: SODIUM CHLORIDE 0.9% INJ SCH (02:13)
[2016-11-13] MEDS: PROTONIX IV SCH (02:13)
[2016-11-13] MEDS: ZOSYN 3.375 GM/NS 3.375 GM/50 ML IVPB IV SCH ×3 (02:14→15:47)
[2016-11-13] MEDS: DUONEB (A & A) INH SCH ×2 (03:40→11:56)
[2016-11-13] MEDS: LR 1,000 ML IV SCH ×2 (03:52→15:47)
[2016-11-13] MEDS: ZYVOX PO SCH ×2 (04:35→16:35)
[2016-11-13 07:00] LABS: AGAP 15; BUN 6 mg/dL (8-22); CALCIUM 9.2 mg/dL (8.8-10.2); CHLORIDE 103 mmol/L (98-107); COSMO 278; POTASSIUM 3.5 mmol/L (3.5-5.1); SODIUM 141 mmol/L (136-145); TCO2 23 mmol/L (25-35)
[2016-11-13] MEDS: LOVENOX SUBQ SCH (07:49)
[2016-11-13 15:29] VITALS: BP 134/88
--- NOTE | 2016-11-13 16:27 | PROGRESS NOTE ---
DATE: 11/13/2016 SUBJECTIVE: This patient is feeling much better. He has been tolerating full liquid diet, today I will advance the diet to soft mechanical diet. He denies nausea, vomiting, diarrhea, constipation. He has no complaint of chest pain, shortness of breath or cough at this moment. OBJECTIVE: Vital Signs: Temperature 98.1 degrees, pulse 80, respiratory rate 16, blood pressure 135/85, oxygen saturation 93 on room air. HEENT: Head normocephalic. No trauma. PERRLA. Neck: Supple. No JVD. No masses. Central trachea. Chest: Clear to auscultation. Mild rhonchi at the bases bilaterally. Cardiovascular: RRR. Abdomen: Soft, nontender, nondistended. No hepatosplenomegaly. Extremities: No edema. No clubbing. No cyanosis. Neurological: The patient is alert and oriented x3. No focal neurological deficits. LABORATORY: Sodium 141, potassium 3.5, chloride 103, bicarbonate 23, BUN 6, creatinine 1.3, glucose 89, calcium 9.2. ASSESSMENT AND PLAN: 1. Recurrent pancreatitis, I will continue with the same management for now. Today I will advance the diet from full liquid diet to soft mechanical diet and see how he does. 2. Acute pyelonephritis versus acute tubular necrosis on imaging, his creatinine increased since this last readmission but has been stable. BUN has been stable as well. We need to continue monitoring the BUN and creatinine. 3. History of alcohol and tobacco abuse. This patient has been highly advised against tobacco and alcohol abuse. I will continue with daily cessation education. This is the 3rd admission with the same complaints. 4. Bibasilar pneumonia. Continue with antibiotics. He is not complaining of chest pain or shortness of breath or cough. Overall this patient is doing much better. He was discharged on 11/10/2016 and he was readmitted the same day, a CT scan of the abdomen and pelvis showed sever worsening in bibasilar infiltrates and new pleural effusions, also worsening pancreatitis of the pancreatic tail, worsening splenomegaly and possible diffuse pyelonephritis or acute tubular necrosis. Infectious Disease department reevaluated this patient and we switched the medications. At this moment he is on Zosyn and Zyvox, I advanced the diet today, let us see how he does and hopefully tomorrow if he tolerates p.o. and the kidney function is stable probably will be able to discharge this patient home, Dr. Pace from Infectious Disease department may change the medication from IV to p.o. and follow up with him in a few weeks. cc: Lior Dominguez MD
--- NOTE | 2016-11-13 16:48 | PROGRESS NOTE ---
DATE: 11/13/2016 The patient was admitted with flare-up his pancreatitis, that is all cleared. He is breathing well. The patient wants to go home today. Dr. Fish is going to discharge him. He will continue the antibiotics I gave him for pneumonia and also we are requesting an appointment to see me in 2 weeks at the office. cc: Shemar Pace MD MTDD
[2016-11-13] MEDS ORDERED: LIPITOR PO SCH (21:00)
--- NOTE | 2016-11-13 21:09 | DISCHARGE SUMMARY ---
ADMISSION DATE: 11/10/2016 DISCHARGE DATE: 11/13/2016 DISCHARGE DIAGNOSES: Patient was recently discharged from this hospital secondary to: 1. Sepsis on presentation likely secondary to underlying pneumonia. 2. Acute hypoxemic respiratory distress on presentation. 3. Severe mediastinal lymphadenopathy. 4. Hyponatremia. 5. Acute on chronic hypernatremia. This patient has been readmitted under the following diagnoses: 1. Recurrent pancreatitis. 2. Acute pyelonephritis versus acute tubular necrosis on imaging. 3. History of alcohol and tobacco abuse. 4. Bibasilar pneumonia. CONSULTATIONS: Dr. Shemar Pace from Infectious Disease Department. HOSPITAL COURSE: A 26-year-old male with a past medical history of recurrent pancreatitis, pneumonia, alcohol abuse, tobacco use and possible cocaine abuse, presented to the emergency department on 11/10/2016 during the night after being discharged the same day around 11 a.m. On that admission, this patient was treated with vancomycin and Zosyn. Infectious Disease Department was consulted. Several other diagnoses were ruled out during that admission, including histoplasmosis, HIV and tuberculosis. Then he was discharged home with Augmentin and ciprofloxacin. He went home after discharge and he started having pain again. As per the patient, he did not eat anything, just drank water. As per the patient also, he did not do any kind of drugs. At the emergency department, he was he if he was found to have a CT of the abdomen and pelvis with contrast that showed worsening bibasilar infiltrates and worsening pancreatitis of the pancreatic tail, worsening splenomegaly and the possibility of pyelonephritis or ATN. His creatinine was a little bit elevated; however, his GFR was normal. This patient was admitted on the medical floor. Infectious Disease Department was consulted again. This patient was placed was placed on Zyvox. This patient was improving on a daily basis. We advanced the diet slowly and this patient has been tolerating diet, no pain at all. He is not complaining of chest pain or shortness of breath or cough either. ASSESSMENT AND PLAN: Today, 11/13/2016, I decided to discharge this patient with strict followup by his primary care doctor in 1 week and follow up by Dr. Shemar Pace in 2 weeks. He will be discharged with the same medication that he was discharged before, Augmentin and ciprofloxacin. DISCHARGE MEDICATION: Augmentin 875 mg p.o. q.12 hours, ciprofloxacin 500 mg p.o. q.12 hours and [place] 7.5 q.4 to q.6 hours p.r.n. pain. Also, he can either follow up with Dr. Otero or Dr. Akin Dos Santos for possible bronchoscopy in the future. Follow up by Dr. Pace in 2 weeks. Followup by his primary care doctor in 1 week. Again, this patient has been advised against illicit drug use, alcohol abstinence as well as smoking cessation. DISCHARGE EXAMINATION: Vital signs: Temperature 98.1 degrees, pulse 80, respiratory rate 16, blood pressure 135/85, oxygen saturation 93% on room air. HEENT: Head normocephalic. No trauma. PERRLA. Neck: Supple. No JVD. No masses. Central trachea. Chest: Clear to auscultation. No wheezing. No rales. Cardiovascular: Regular rhythm and rate. No murmurs. No gallops. No rubs. Abdomen: Soft, nontender, nondistended. No hepatosplenomegaly. Extremities: No edema. No clubbing. No cyanosis. Neurological: The patient is alert and oriented x3. No focal neurological deficits. LABORATORY: Sodium 141, potassium 3.5, chloride 103, bicarbonate 23, BUN 6, creatinine 1.3, glucose 5, calcium 9.2. TIME SPENT ON DISCHARGE: 35 minutes. cc: Lior Dominguez MD
== END 2016-11-13 16:40 | disposition home or self-care (01) ==
LOC: ED 15:59 → SUATTDRO 21:53 → 3N 21:53
PROVIDERS: ATTEND Internal Medicine

== ENCOUNTER 2016-12-14 20:10 | Inpatient (IN) ==
[2016-12-14 20:54] LABS: MANUAL DIFF NEEDED? NO
[2016-12-14 20:57] LABS: BASO% 0.6 % (0.0-0.8); EOS# 0.24 X1000 (0.0-0.7); EOS% 2.1 % (0.0-10.0); HEMATOCRIT 46.8 % (42.0-52.0); HEMOGLOBIN 15.8 g/dL (14.0-18.0); IMM GRAN# 0.11 X1000 (0.0-0.04); LYMPH# 2.43 X1000 (1.2-3.4); LYMPH% 21.7 % (20.5-51.1); MCH 28.5 PG (27-31); MCHC 33.8 g/dL (33-37); MCV 84.5 FL (81-99); MONO# 1.29 X1000 (0.11-0.59); MONO% 11.5 % (1.7-9.3); MPV 11.3 FL (7.4-10.4); NEUT% 63.1 % (42.2-75.2); PLT 299 X1000 (130-400); RBC 5.54 XMIL (4.7-6.1)
[2016-12-14 21:20] LABS: AGAP 13; ALBUMIN 4.6 g/dL (3.5-5.0); ALKALINE PHOSPHATASE 144 U/L (32-122); AMYLASE 142 U/L (20-200); BUN 15 mg/dL (8-22); CALCIUM 9.5 mg/dL (8.8-10.2); CHLORIDE 101 mmol/L (98-107); COSMO 279; GOT 21 U/L (10-34); GPT 38 U/L (10-44); LIPASE 222 U/L (13-60); POTASSIUM 4.1 mmol/L (3.5-5.1); SODIUM 139 mmol/L (136-145); TCO2 25 mmol/L (25-35); TOTAL PROTEIN 8.4 g/dL (6.3-8.3)
[2016-12-14] MEDS ORDERED: SODIUM CHLORIDE 0.9% INJ ONE (22:19)
[2016-12-14] MEDS ORDERED: PHENERGAN IV ONE (22:19)
[2016-12-14] MEDS ORDERED: NS 1,000 ML IV ONE (22:19)
--- NOTE | 2016-12-14 22:24 | PROVIDER DOCUMENTATION ---
HPI-Abdominal Pain/GI Problem - General Chief Complaint: Abdominal Pain Stated Complaint: ABD PAIN Time Seen by Provider: 12/14/16 21:47 Source: patient Allergies/Adverse Reactions: Patient Allergies Allergy/AdvReac Type Severity Reaction Status Date / Time No Known Allergies Allergy Verified 11/10/16 17:22 Home Medications: Home Medication List Medication Instructions Recorded Confirmed Last Taken Type Hydrocodone/APAP 7.5 mg/325 mg 1 each PO Q6H PRN PRN #12 tablet 12/05/16 Unknown Rx [Gerlach-7.5] Ondansetron [Zofran] 4 mg PO Q6H PRN PRN #20 tablet 12/05/16 Unknown Rx - History of Present Illness-ABD Nature of Presenting Problems: 26 y/o HM presents to the ED with c/o epigastric pain x 10 hours. Pt states he has a hx of pancreatitis due to drinking in the past. States ate some plantains at lunchtime today and is now having abd. pain. Denies any radiation. States nausea, no vomiting. Denies any current hx of etOH use or hx of gallstones. No other sxs reported. Review of Systems - Adult - REVIEW OF SYSTEMS - ADULT Constitutional: reports: no symptoms reported. denies: chills, fever Eyes: reports: no symptoms reported. denies: blurred vision, double vision Ears, Nose, Mouth & Throat: reports: no symptoms reported. denies: ear pain, nose pain Cardiovascular: reports: no symptoms reported. denies: chest pain, palpitations Respiratory: reports: no symptoms reported. denies: dyspnea on exertion, shortness of breath Gastrointestinal: reports: see HPI, abdominal pain, nausea. denies: constipation, diarrhea, vomiting Genitourinary: reports: no symptoms reported. denies: dysuria, frequency Musculoskeletal: reports: no symptoms reported. denies: joint pain, joint swelling Integumentary: reports: no symptoms reported. denies: nail changes, rash Neurological: reports: no symptoms reported. denies: numbness, paresthesia Psychiatric: reports: no symptoms reported Endocrine: reports: no symptoms reported. denies: cold intolerance, heat intolerance Hematologic/Lymphatic: reports: no symptoms reported. denies: easy bruising, prolonged bleeding Allergic/Immunologic: reports: no symptoms reported All Other Systems: Reviewed and Negative Past History - Adult - PAST MEDICAL HISTORY-ADULT Review of Records: reports: Nursing Assessment Review, Medications Reviewed Major Childhood Illnesses: reports: denies history Cardiovascular: reports: denies history Respiratory: reports: denies history Gastrointestinal: reports: pancreatitis Obstetrical/Gynecological: reports: denies history Genitourinary: reports: denies history Musculoskeletal: reports: denies history Neurological: reports: denies history Endocrine/Immune: reports: denies history Other Conditions: reports: denies history - PRIOR SURGERIES/PROCEDURES Surgical/Procedure History: reports: reviewed, not pertinent - PRIOR HOSPITALIZATIONS Prior Hospitalizations: reports: for other non-related - IMMUNIZATION STATUS Childhood Immunizations: See Nurse Assessment Flu Vaccine: See Nurse Assessment - FAMILY HISTORY Family History: reviewed, not pertinent - SOCIAL HISTORY Smoking: cigarettes, less than 1 pack/day Provider spent 3-5 mins advising pt. on dangers of tobacco.: Discussed manners to quit use, and f/u contacts for add'l counseling. Alcohol Use Frequency: sober (former use) Physical Exam-General - PHYSICAL EXAM-ADULT Initial Vital Signs Reviewed: Yes - CONSTITUTIONAL General Appearance: alert, mild distress - EYES Eyes: pink conjunctivae - HEAD, EARS, NOSE, MOUTH & THROAT HENMT: normocephalic/atraumatic, moist mucous membranes - NECK Neck: normal inspection - RESPIRATORY Respiratory: lungs clear, normal breath sounds. negative: crackles, rales, rhonchi, stridor, wheezing - CARDIOVASCULAR Cardiovascular: regular rate, rhythm. negative: bradycardia, tachycardia - GASTROINTESTINAL (ABDOMEN) Abdominal Exam: normal bowel sounds, soft, tenderness (epigastric). negative: distended, guarding, rigid, rebound, McBurney's point tenderness, Reynolds's sign - MUSCULOSKELETAL Back Exam: normal inspection, no CVA tenderness Extremity: normal gait - SKIN Integumentary: normal color, normal turgor, warm/dry - NEUROLOGIC Neurologic: negative: aphasia - PSYCHIATRIC Psych/Mental Status: normal mood/affect Progress - PLAN OF CARE/RESULTS Progress/Plan/Lab Results: Vital Signs - 8 hr 12/14/16 20:17 Temperature 98 F Pulse Rate 89 Respiratory Rate 18 Blood Pressure 141/80 O2 Sat by Pulse Oximetry 99 Laboratory Results - last 24 hr 12/14/16 12/14/16 20:47 20:47 WBC 11.19 H RBC 5.54 Hgb 15.8 Hct 46.8 MCV 84.5 MCH 28.5 MCHC 33.8 RDW Std Deviation 14.2 Plt Count 299 MPV 11.3 H Immature Gran % (Auto) 1.0 H Neut % (Auto) 63.1 Lymph % (Auto) 21.7 [place] % (Auto) 11.5 H Eos % (Auto) 2.1 Baso % (Auto) 0.6 Immature Gran # (Auto) 0.11 H Neut # (Auto) 7.05 H Lymph # (Auto) 2.43 [place] # (Auto) 1.29 H Eos # (Auto) 0.24 Baso # (Auto) 0.07 Sodium 139 Potassium 4.1 Chloride 101 Carbon Dioxide 25 Anion Gap 13 BUN 15 Creatinine 1.1 Estimated GFR/1.73 m2 > 60 BUN/Creatinine Ratio 14 Glucose 110 H Calculated Osmolality 279 Calcium 9.5 Total Bilirubin 0.20 AST 21 ALT 38 Alkaline Phosphatase 144 H Total Protein 8.4 H Albumin 4.6 Globulin 4.0 Albumin/Globulin Ratio 1.0 Amylase 142 Lipase 222 H Orders Category Date Time Status CT ABD/PELVIS W/ IV CONT ONLY [CT] Stat Exams 12/14/16 21:47 Ordered AMYLASE [CHEM] Stat Lab 12/14/16 20:47 Completed CBC WITH DIFF [HEME] Stat Lab 12/14/16 20:47 Completed COMPREHENSIVE METABOLIC PANEL [CHEM] Stat Lab 12/14/16 20:47 Completed LIPASE [CHEM] Stat Lab 12/14/16 20:47 Completed Ns 1000 ml IV Bolus X1 Med 12/14/16 22:19 Ordered 0.9% Sodium Chloride Inj [Ns] 1,000 ml IV 999 mls/hr Promethazine [Phenergan] Med 12/14/16 22:19 Once 12.5 mg IV NOW ONE Sodium Chloride 0.9% Med 12/14/16 22:19 Once 10 ml INJ NOW ONE Result Diagrams: 12/15/16 05:30 12/15/16 05:30 - CT/MRI 1 CT Study: Abdomen, Pelvis Impression: See EMR Report (1. Pancreatic duct dilatation with obstruction at the pancreatic head and vague hypodensity in the pancreatic neck are unchanged. -per Dr. Goff ([facility])) - CONSULTS/PCP/HOSPITALIST Notification #1 *Consult/PCP/Hospitalist*: Dr. Marsh Time Discussed: 00:31 Reason/Comments: obstruction in pancreas Consult Disposition: other (states that she does not perform ERCP and will need to find out if Dr. Barclay can perform an ERCP tomorrow, otherwise send to .) #2 Consult: Dr. Hardy Time Discussed: 01:06 Reason/Comments: obstruction in pancreas Consult Disposition: other (will consult tomorrow) #3 Consult: Dr. Gomez Time Discussed: 01:00 Reason/Comments: obstruction in pancreas Consult Disposition: Admit Departure - Departure Date of Disposition Decision: 12/15/16 Time of Disposition Decision: 00:59 DIAGNOSIS: Pancreatic duct obstruction Pancreatitis Qualifiers: Chronicity: acute Pancreatitis type: unspecified pancreatitis type Acute pancreatitis complication: unspecified Qualified Code(s): K85.90 - Acute pancreatitis without necrosis or infection, unspecified Disposition: ADMITTED INPATIENT 09 Certified Medical Emergency: Emergent Condition: Stable - Critical Care Note This patient required my direct & personal management of CC.: No Attestation - Physician/ MARITZA Attestation Patient care was provided by Advanced Practice Provider:: Yes Advanced Practice Provider:: Aziza Zhong Advanced Practice Provider documentation review:: The Mid-level provider documentation, treatment plan and medical decision making was reviewed by the physician who agrees with all treatment and medical decision making by the MLP.
[2016-12-14] MEDS ORDERED: MORPHINE IV ONE (23:40)
[2016-12-15] MEDS ORDERED: NS 1,000 ML IV ONE (01:13)
[2016-12-15] MEDS ORDERED: ZOFRAN IV PRN ×2 (01:13→03:09)
[2016-12-15] MEDS ORDERED: MORPHINE IV PRN (01:13)
[2016-12-15] MEDS ORDERED: DILAUDID IV ONE (03:09)
[2016-12-15] MEDS ORDERED: PHENERGAN PO PRN (03:09)
[2016-12-15] MEDS: SODIUM CHLORIDE 0.9% INJ SCH ×2 (03:29→15:06)
[2016-12-15] MEDS: PEPCID IV SCH ×2 (03:29→15:06)
[2016-12-15] MEDS: NS 1,000 ML IV SCH ×3 (03:36→22:57)
--- NOTE | 2016-12-15 04:00 | HISTORY AND PHYSICAL ---
PRIMARY CARE PHYSICIAN: No primary care physician. REASON FOR ADMISSION: Epigastric pain for 1 day's duration. HISTORY OF PRESENT ILLNESS: Mr. Zbigniew Valdes is a 26-year-old male with a past medical history of recurrent pancreatitis. His was discharged here about a month ago for recurrent pancreatitis, pneumonia, alcohol abuse, and cocaine abuse. He comes in today developing sudden epigastric pain radiating to the back 30 minutes after eating. He said the pain has been constant. It is sharp. Does not radiate anywhere else. He denies any fever, chills, diarrhea, or weight loss. There is no antecedent history of change in the color of his stool or urine. He does admit to developing nausea but no vomiting subsequent to this pain. No abdominal distention. No genitourinary complaints. No cardiorespiratory complaints. No dizziness. No use of illicit substances or other herbal remedies or lupl-kra-kiuljda medications. REVIEW OF SYSTEMS: Twelve system review is negative. Positive findings as per HPI. No rash, no pruritus. ALLERGIES: None. MEDICATIONS: None. PAST SURGICAL HISTORY: Appendectomy. FAMILY HISTORY: Type 2 diabetes but no cancer in first-degree relatives. No heart disease in first-degree relatives. SOCIAL HISTORY: Denies any recent history of alcohol abuse and says he has not drank since he left a month ago. Denies any illicit drug use. He smokes about a half a pack a day. DIAGNOSTIC DATA: Blood work: White count is 7000, hemoglobin and hematocrit 15 and 46, platelets 299,000, with normal differential. Chemistry: Glucose 110. AST 21, ALT 38, alkaline phosphatase 144, amylase 142, lipase 222. A CT scan preliminary report suggests patient has developed a pancreatic mass from his last CT scan a month ago. Urinalysis pending. PHYSICAL EXAMINATION: GENERAL: Young man who is in acute distress from his pain. He is alert and oriented to person, place, and time. Normal mood and affect. HEENT: Head is normocephalic, atraumatic. Eyes: STEFANIE, EOMI. He is anicteric and not pale. ENT and oropharyngeal exam is grossly normal. No oropharyngeal exudates or erythema. VITAL SIGNS: Blood pressure 130/65 heart rate 57, respirations 18, temperature is 97.7 degrees, 100% on room air. NECK: Supple. No JVD or carotid bruit. No thyromegaly. CHEST: Clear to auscultation with good air entry in both lung angulo. CARDIOVASCULAR: First and second sounds heard. No gallops, murmurs, or rubs. Rhythm is regular. ABDOMEN: Full, soft, with localized epigastric tenderness. No rebound or guarding. No mass or organomegaly. Bowel sounds are normal. RECTAL: Examination is deferred at this time. EXTREMITIES: Neurovascularly intact. No edema, clubbing, or peripheral cyanosis. The patient has good pulses distally in all extremities. Good volume noted. NEUROLOGICAL: No tremors or asterixis. No focal deficits. SKIN: Intact with no breakdown, lesions, or erythema. MUSCULAR: Examination is grossly normal. ASSESSMENT: 1. Recurrent pancreatitis with a pancreatic mass, query (?) phlegmon or pseudocyst. 2. Dehydration. 3. Tobacco use. PLAN: At this time, Dr. Barclay will be consulted for a possible ERCP, feeling that CT-guided biopsy may be another alternative to get at this "mass" that has developed in the space of 1 month. The patient is rather on the young side to have developed a malignant pancreatic neoplasm. His history of smoking is not extensive and he is not a heavy smoker. However, recurrent pancreatitis can be a risk factor but this usually occurs in a more chronic and drawn out history. A urine drug screen will also be ordered to rule out any underlying trigger for his pancreatitis (i.e., cocaine use). We are going to hydrate the patient. We will treat patient symptomatically (i.e., for pain, nausea, and vomiting). Follow up my colleagues who will be assuming care, follow the patient closely with Dr. Barclay. DVT prophylaxis ordered, especially in this subgroup of patients who are at risk of developing DVT. Also be vigilant for any early signs of alcohol withdrawal, even though the patient states that he is not actively drinking. cc: Noreen Gomez MD MTDM[facility]
[2016-12-15] MEDS: DILAUDID IV PRN ×6 (05:44→22:54)
[2016-12-15 05:49] LABS: MANUAL DIFF NEEDED? NO
[2016-12-15 05:51] LABS: BASO% 1.3 % (0.0-0.8); EOS% 2.8 % (0.0-10.0); HEMATOCRIT 43.3 % (42.0-52.0); HEMOGLOBIN 14.6 g/dL (14.0-18.0); IMM GRAN# 0.05 X1000 (0.0-0.04); IMM GRAN% 0.7 % (0.0-0.5); LYMPH# 2.36 X1000 (1.2-3.4); LYMPH% 33.1 % (20.5-51.1); MCH 29.1 PG (27-31); MCHC 33.7 g/dL (33-37); MCV 86.3 FL (81-99); MONO% 9.8 % (1.7-9.3); MPV 10.9 FL (7.4-10.4); NEUT% 52.3 % (42.2-75.2); PLT 236 X1000 (130-400); RBC 5.02 XMIL (4.7-6.1)
[2016-12-15 06:08] LABS: PROTIME 10.5 Seconds (9.2-11.7); PTT 26.6 Seconds (22.0-36.0)
[2016-12-15 06:22] LABS: AGAP 12; ALBUMIN 3.8 g/dL (3.5-5.0); ALKALINE PHOSPHATASE 111 U/L (32-122); AMYLASE 128 U/L (20-200); BUN 11 mg/dL (8-22); CALCIUM 9.1 mg/dL (8.8-10.2); CHLORIDE 104 mmol/L (98-107); COSMO 277; GOT 17 U/L (10-34); GPT 28 U/L (10-44); LIPASE 197 U/L (13-60); MAGNESIUM 2.1 mg/dL (1.5-2.7); POTASSIUM 4.2 mmol/L (3.5-5.1); SODIUM 139 mmol/L (136-145); TCO2 23 mmol/L (25-35); TOTAL BILIRUBIN 0.19 mg/dL (0.20-1.00); TOTAL PROTEIN 6.9 g/dL (6.3-8.3)
--- NOTE | 2016-12-15 07:57 | Diag Imaging Result Doc PS360 ---
EXAM: CT ABD/PELVIS W/ IV CONT ONLY - 12/14/2016 HISTORY: leukocytosis, elevated lipase TECHNIQUE: With intravenous contrast only per request of the referring provider. Dose reduction protocol. COMPARISON: 11/10/2016 FINDINGS: The infiltrates and pleural effusions are seen at the base of the chest on previous exam have largely resolved. There is a small opacity at the posterior right lung base which may represent atelectasis or scarring. The liver is unremarkable. The spleen has decreased in size and now appears within normal limits in size. There is a small low-density lesion at the posterior medial upper spleen which appear stable. The adrenal glands are unremarkable. The inflammatory changes about the pancreatic tail which were seen on the previous exam appear to have largely resolved. The pancreatic duct remains dilated. There is no discrete pancreatic mass identified. There is no pseudocyst identified. There are no calcified gallstones or pericholecystic inflammation identified. There is no biliary ductal dilatation identified. There is a 1.6 cm cyst at the lower left kidney. The remainder of the bilateral kidneys enhance relatively homogeneously. There is no hydronephrosis. There are nonspecific small retroperitoneal lymph nodes. There is no evidence of bowel obstruction. There is no substantial bowel wall thickening identified. There is no pericecal inflammation identified. There is no free air, substantial free fluid, or abscess identified. IMPRESSION: Small opacity at posterior right lung base which may represent atelectasis or scarring. Apparent resolution of the pancreatic inflammatory changes which were seen on the previous exam. The pancreatic duct remains dilated. There is no discrete pancreatic mass identified. There are no calcified gallstones seen. No bowel obstruction. No abscess. No free air. The classroom monitor radiologist provided primary results at 11:42 PM on 12/14/2016. Electronically signed by Patrick Branch 12/15/2016 7:55 AM
[2016-12-15] MEDS: THIAMINE IM SCH (09:27)
[2016-12-15] MEDS: LOVENOX SUBQ SCH (09:28)
[2016-12-15 09:57] LABS: URINE CULTURE NEEDED? NO; URINE MICRO REVIEW NEEDED? NO; URINE SOURCE CATH
[2016-12-15 10:19] LABS: BILIRUBIN URINE NEGATIVE (NEGATIVE); BLOOD URINE NEGATIVE (NEGATIVE); COLOR YELLOW; GLUCOSE URINE NEGATIVE (NEGATIVE); LEUKOCYTES URINE NEGATIVE (NEGATIVE); NITRITE URINE NEGATIVE (NEGATIVE); PH URINE 6.5; PROTEIN URINE NEGATIVE (NEGATIVE); SP GRAVITY URINE 1.043; TURBIDITY URINE CLEAR (CLEAR); UROBILINOGEN URINE NORMAL (NORMAL)
[2016-12-15 10:21] LABS: UR EPITHELIAL CELLS <10 /HPF (<10); URINE BACTERIA NEGATIVE /HPF; URINE RBC <10 /HPF (<10); URINE WBC <10 /HPF (<10)
[2016-12-15 12:07] LABS: UR AMPHETAMINES QUAL NONE DETECTED (NONE DETECT); UR BARBITUATES QUAL NONE DETECTED (NONE DETECT); UR BENZODIAZEPIN QUAL NONE DETECTED (NONE DETECT); UR CANNABINOIDS QUAL NONE DETECTED (NONE DETECT); UR COCAINE QUAL PRESUMPTIVE POSITIVE (NONE DETECT); UR METHADONE QUAL NONE DETECTED (NONE DETECT); UR OPIATES QUAL PRESUMPTIVE POSITIVE (NONE DETECT); UR OXYCODONE QUAL NONE DETECTED (NONE DETECT); UR PCP QUAL NONE DETECTED (NONE DETECT)
[2016-12-16] MEDS: DILAUDID IV PRN ×2 (01:54→05:38)
[2016-12-16] MEDS: SODIUM CHLORIDE 0.9% INJ SCH ×2 (05:38→15:43)
[2016-12-16] MEDS: PEPCID IV SCH ×2 (05:38→15:43)
[2016-12-16] MEDS: NS 1,000 ML IV SCH ×5 (05:41→15:14)
[2016-12-16] MEDS: LOVENOX SUBQ SCH (10:00)
--- NOTE | 2016-12-16 10:09 | CONSULTATION ---
DATE OF CONSULTATION: 12/15/2016 REFERRING PHYSICIAN: Pineda Hickman MD. PRIMARY CARE PROVIDER: The patient has both GI and primary care providers in [place]. He has no providers in the [place]. INDICATION FOR CONSULTATION: 1. Acute pancreatitis. 2. Epigastric pain. 3. Nausea with vomiting. HISTORY OF PRESENT ILLNESS: The patient is a 26-year-old, Bangl[place] male who has a history of recurrent pancreatitis, alcohol abuse, cocaine abuse, and pneumonia. He states that he has done well since his discharge from [facility] 1 month ago when he was admitted for pancreatitis. He consumed alcohol and ate spicy pork meat. He states immediately after he ate, he developed epigastric pain that became progressively worse over the course of the day. He presented to the emergency room with epigastric pain and severe nausea. He subsequently had a small amount of emesis after evaluation. His CT scan in the emergency room is remarkable for pancreatic inflammation with pancreatic duct dilation. There was no mass identified. There were no calcified gallstones. There was no bowel obstruction, abscess, or free air. He was noted to have a small opacity at the posterior right lung base which may represent atelectasis or scarring. Overnight, the patient has received IV fluids and pain medicines. He states that he is better and ready to go home. He states that he is scheduled to fly to [place] on Monday to return home. Otherwise, he denies complaint. PAST MEDICAL HISTORY: 1. Recurrent pancreatitis. 2. Alcohol abuse. 3. Cocaine abuse. 4. Pneumonia. PAST SURGICAL HISTORY: Appendectomy. MEDICATION ALLERGIES: None. HOME MEDICATIONS: None. FAMILY HISTORY: Remarkable for diabetes mellitus 2. SOCIAL HISTORY: The patient denies alcohol use since he left but then admitted that he drank an alcoholic beverage along with his pork sandwich yesterday. He denies illicit drug use and he states that he smokes a half a pack of cigarettes per day. However, his urine toxicology screen on admission was positive for opioids and cocaine. REVIEW OF SYSTEMS: Remarkable for the pain and nausea and the information as noted above in the history of present illness. PHYSICAL EXAMINATION: Vital Signs: On exam, his blood pressure is 115/97, pulse 52, respiration 20, temperature of 97.8 degrees. HEENT: Unremarkable. There pulmonary and there is no evidence of jaundice. His sclerae are anicteric. His conjunctivae are normal. His oropharyngeal mucosa membranes are moist. Pulmonary: His lungs are clear to auscultation with normal expiratory effort. Cardiovascular Exam: Reveals regular rate and rhythm to a slightly bradycardic rhythm with no murmurs, gallops, or rubs. Abdomen: Soft and nontender with no rebound or guarding. Extremities: Bilaterally are negative for cyanosis, clubbing, or edema. OBJECTIVE DATA: Reveals a hemoglobin of 14.6, with hematocrit of 43.4, and a white count 7.13. He has 236,000 platelets. His PT is 10.5 with an INR of 1.0, and a PTT of 26.6. Sodium is 139, potassium 4.2, chloride 104, CO2 of 23, BUN 11, creatinine 0.8, with a glucose of 93. Calcium 9.1, magnesium 2.1, total bilirubin 0.19, AST 17, ALT 28, alkaline phosphatase 111, total protein 6.9, albumin 3.8. Amylase is 128, with a lipase of 197. IMPRESSION: 1. Acute on chronic pancreatitis. 2. Polysubstance abuse. RECOMMENDATION: The patient states that he really wants to be discharged in time to fly to [place] on Monday. He has a primary care physician and a food sanitarian in [place]. He states that he does not plan to pursue long-term care here. Therefore, I recommend supportive care. We will sign off. Thank you for allowing us to participate in the care of this patient. cc: MD Pineda Gardner MD
[2016-12-16] MEDS: MORPHINE IV PRN ×3 (10:37→15:43)
[2016-12-16] MEDS: THIAMINE IM SCH (12:12)
[2016-12-16 14:42] VITALS: BP 123/71
--- NOTE | 2016-12-16 17:39 | DISCHARGE SUMMARY ---
ADMISSION DATE: 12/15/2016 DISCHARGE DATE: 12/16/2016 CONSULTATIONS DURING THIS ADMISSION: GI was consulted. The patient was seen by Dr. Marsh. INVESTIGATIVE INTERVENTION DONE DURING THIS ADMISSION: None. IMAGING STUDIES: CT scan of the abdomen and pelvis was done which shows small opacity at posterior right lung base which may represent atelectasis or scarring. There is apparent resolution of the pancreatic inflammatory changes which were seen on the previous exam. The pancreatic duct remains dilated. There is no discrete pancreatic mass identified and there is no calcified stone. No bowel obstruction. ADMISSION DIAGNOSES: 1. Recurrent pancreatitis with pancreatic mass. 2. Dehydration. 3. Tobacco abuse. DIAGNOSES AT THE TIME OF DISCHARGE: 1. Acute on chronic recurrent pancreatitis. 2. Alcohol induced pancreatitis. 3. Dehydration. 4. Tobacco abuse. DISCHARGE MEDICATIONS: 1. [place] 7.5 every 6 hours p.r.n. 2. Zofran 4 mg p.o. p.r.n. PRESENTING COMPLAINT: Abdominal pain. HISTORY OF PRESENTING COMPLAINT: Mr. Valdes is a 26-year-old male who has been in and out of both [place] and [facility] because of recurrent pancreatitis due to alcohol abuse. According to Mr. Valdes, a day prior to his admission he had eaten a lot of pork and drank a few beers. Since then his abdomen to started to act up. He came into the emergency department, was evaluated, was found to have a lipase level of 222. The patient was admitted for further medical care. HOSPITAL COURSE: The patient was admitted to the medical floor. He was kept n.p.o., adequately hydrated, and placed on pain medications. Abdominal pain improved. The patient was seen by GI. A C reactive protein was done which came back to be 11.86, which is the lowest it has been in all the times he has been in the hospital. The last C reactive protein was done on 11/12/2016 and it was 124.41. Today he refers that the pain has considerably resolved. He is able to tolerate his diet. He is therefore going to be discharged to follow up with Dr. Marsh on an outpatient basis. At the time of discharge, there are no new pending labs or imaging studies. TIME SPENT FOR DISCHARGE: Thirty-four minutes. cc: Pineda Hickman MD
== END 2016-12-16 15:58 | disposition home or self-care (01) ==
LOC: P.ED 20:10 → 4N 20:10 → OBSVTOIN 12-15 01:27 → SUATTDRO 12-15 01:27 → 4N 12-15 23:06
PROVIDERS: ATTEND Internal Medicine